=== PATIENT | male | born 1955 | race Caucasian/White ===

== ENCOUNTER 2020-01-10 14:19 | Outpatient (CLI) | payer MEDICARE, SELFPAY ==
--- NOTE | ~2020-01-10 | XR_ITS ---
EXAMINATION: XR abdomen/kub 1V EXAM DATE: 01/10/2020 14:54 INDICATION: Acute left flank pain. TECHNIQUE: Frontal projection(s) of the abdomen for interpretation. Comparison is made to prior exami nation from 07/08/2013. FINDINGS: There is a 6 mm calcification projecting over the lower pole of the right kidney, probably nephrolithiasis. There is expected amount of colonic stool and gas. No small bowel dilation, nonob structive bowel gas pattern. There is no organomegaly suspected. There are bony degenerative altman es. There is no free intraperitoneal air. The lung bases are clear. IMPRESSION: Probable right nephrolithiasis. Reviewed, dictated and finalized at location A.
== END 2020-01-10 14:20 | disposition home or self-care (01) ==
PROVIDERS: PCP Family Medicine Adolescent Medicine; Visit Provider Nurse Practitioner Adult Health
DX: R10.9 Unspecified abdominal pain (principal)
CPT/HCPCS: 74018; 87077; 87086; 87088; 87186

== ENCOUNTER 2020-01-18 10:26 | Outpatient (CLI) | payer MEDICARE, SELFPAY ==
--- NOTE | ~2020-01-18 | CT_ITS ---
EXAMINATION: CT abdomen pelvis wo con DATE: 01/18/2020 11:01 INDICATION: Acute left flank pain. TECHNIQUE: Computed tomography (CT) of the abdomen and pelvis was performed without intravenous contr ast. Automated exposure control and iterative reconstruction technique were employed. The dose-length product was 538.14 mGy-cm. COMPARISON: CT abdomen and pelvis 11/18/2013 FINDINGS: The lungs demonstrate minimal atelectasis. No pleural effusion. The heart size is normal. T here are coronary artery calcifications. No pericardial effusion. There is diffuse hepatic steatosis. The gallbladder, spleen, pancreas, and adrenal glands are normal. There are 4 stones in right kidney measuring up to 10 mm. There are two 1 mm stones in left kidney. There are cysts in left kidney chauncey uring up to 4.0 cm. No hydronephrosis. There is diverticulosis of the colon without evidence of diver ticulitis. There are mildly dilated loops of small bowel in left abdomen without focal transition poi nt. The appendix is normal. There are no pathologically enlarged lymph nodes. There is no free intrap eritoneal fluid. There is severe lumbar spondylosis and moderate thoracic spondylosis. IMPRESSION: 1. Bilateral nonobstructing kidney stones. 2. Mildly dilated small bowel in left abdomen without focal transition point, likely adynamic ileus. Reviewed, dictated and finalized at location E. IMPRESSION: 1. Bilateral nonobstructing kidney stones. 2. Mildly dilated small bowel in left abdomen without focal transition point, l ikely adynamic ileus.
== END 2020-01-18 10:27 | disposition home or self-care (01) ==
PROVIDERS: PCP Family Medicine Adolescent Medicine; Visit Provider Nurse Practitioner Adult Health
DX: R10.9 Unspecified abdominal pain (principal); N20.0 Calculus of kidney
CPT/HCPCS: 74176

== ENCOUNTER 2020-01-28 14:51 | Outpatient (CLI) | payer MEDICARE, SELFPAY ==
--- NOTE | ~2020-01-28 | XR_ITS ---
XR lumbar spine 2-3V 01/28/2020 15:27 Indication: Low back pain Procedure: 3 views lumbar spine Comparison: 05/10/2011 Findings: There is disc narrowing and endplate degenerative change at all levels. There is been progr ession of loss of disc height at all lumbar levels. There is degenerative retrolisthesis at L2-3 and L3-4. No acute fracture or traumatic malalignment. There is moderate-severe multilevel facet hypertro phy. Pedicles intact. Sacral foramen are symmetric. There is a right renal stone measuring 9 mm. Impression: 1: Progression of severe lumbar spondylosis compared with prior study. 2: Right nephrolithiasis measuring 9 mm. Reviewed, dictated and finalized at location A. Impression: 1: Progression of severe lumbar spondylosis compared with prior study. 2: Right nephrolithiasis measuring 9 mm.
== END 2020-01-28 14:52 | disposition home or self-care (01) ==
PROVIDERS: PCP Family Medicine Adolescent Medicine; Visit Provider Family Medicine Adolescent Medicine
DX: N20.0 Calculus of kidney (principal)
CPT/HCPCS: 72100

== ENCOUNTER 2020-02-03 20:28 | Outpatient (CLI) | payer MEDICARE, SELFPAY ==
--- NOTE | ~2020-02-03 | MR_ITS ---
EXAMINATION: MR lumbar spine wo con DATE: 02/03/2020 21:05 INDICATION: Left-sided low back pain. Left-sided sciatica. TECHNIQUE: Magnetic resonance imaging (MRI) of the lumbar spine was performed without intravenous con trast. Sequences included sagittal T2-weighted FSE, sagittal T2-weighted FS FSE, sagittal T1-weighted FSE, and axial T2-weighted FSE. COMPARISON: Lumbar spine MRI 05/21/2011 FINDINGS: There is 4 degrees dextrocurvature of lumbar spine. There is 5 mm retrolisthesis of L2 on L 3 and 3 mm retrolisthesis of L3 on L4. There is mild chronic anterior wedging of L1 and L2 vertebral bodies. There is moderately decreased disc height at L1-L2 and severely decreased disc height from L2 -L3 through L5-S1. The distal spinal cord signal intensity is normal. The conus medullaris is at L1-L 2. There is a 4.6 cm cyst in left kidney. The following disc levels are specifically discussed: L1-L2: The disc is bulging with superimposed left central extrusion. There is mild right facet joint osteoarthritis. There is mild bilateral neural foraminal stenosis. There is mild central canal stenos is. L2-L3: The disc is bulging and has an annular fissure. There is mild bilateral facet joint osteoarthr itis. There is moderate bilateral neural foraminal stenosis. There is mild central canal stenosis. L3-L4: The disc is bulging and has an annular fissure. There is moderate right and mild left facet mg int osteoarthritis. There is moderate bilateral neural foraminal stenosis. There is mild central taoc l stenosis. L4-L5: The disc is bulging with superimposed extrusion and left subarticular zone with mass effect on left L5 nerve root in left lateral recess. There is severe bilateral facet joint osteoarthritis. The re is severe right and moderate left neural foraminal stenosis. There is mild central canal stenosis. L5-S1: The disc is bulging as an annular fissure. There is moderate bilateral facet joint osteoarthri tis. There is severe bilateral neural foraminal stenosis. There is mild central canal stenosis. IMPRESSION: 1. Severe lumbar spondylosis, worsened from 05/21/2011. Of note, an extrusion at L4-L5 exerts mass eff ect on left L5 nerve root. Reviewed, dictated and finalized at location A. IMPRESSION: 1. Severe lumbar spondylosis, worsened from 05/21/2011. Of note, an extrusion at L4-L5 exerts mass effect on left L5 nerve root.
== END 2020-02-03 20:29 | disposition home or self-care (01) ==
PROVIDERS: PCP Family Medicine Adolescent Medicine; Visit Provider Family Medicine Adolescent Medicine
DX: M54.32 Sciatica, left side (principal); M47.816 Spondylosis without myelopathy or radiculopathy, lumbar region
CPT/HCPCS: 72148

== ENCOUNTER 2020-02-14 14:13 | Outpatient (CLI) | payer MEDICARE, SELFPAY ==
[2020-02-14 14:49] LABS: Blood Urea Nitrogen 14 mg/dL (9-20); Calcium 9.3 mg/dL (8.4-10.2); Carbon Dioxide 30 mmol/L (22-30); Chloride 100 mmol/L (98-107); Estimated Glomerular Filt Rate > 60; Glucose 295 mg/dL (75-110); INR 0.9; Sodium 136 mmol/L (137-145)
[2020-02-14 14:50] LABS: Partial Thromboplastin Time 27.6 SECONDS (22.3-36.8)
== END 2020-02-14 14:14 | disposition home or self-care (01) ==
LOC: ANHSURGERY 14:15
PROVIDERS: Anesthesiology; PCP Family Medicine Adolescent Medicine; Visit Provider Urology
DX: N20.0 Calculus of kidney (principal); E11.9 Type 2 diabetes mellitus without complications
CPT/HCPCS: 36415; 80048; 85610; 85730; 87077; 87086; 87088; 87186

== ENCOUNTER 2020-02-16 01:00 | Outpatient (CLI) | payer MEDICARE, SELFPAY ==
[2020-02-16 18:10] LABS: SARS-CoV-2 RNA PCR Negative
== END 2020-02-16 01:01 | disposition home or self-care (01) ==
LOC: ANHCOVIDDT 01:00
PROVIDERS: PCP Family Medicine Adolescent Medicine; Visit Provider Urology
DX: Z20.828 Contact with and (suspected) exposure to other viral communicable diseases (principal); Z01.812 Encounter for preprocedural laboratory examination
CPT/HCPCS: 87635; C9803; U0003

== ENCOUNTER 2020-02-18 03:10 | Day surgery (SDC) | payer MEDICARE, SELFPAY ==
[2020-02-10 14:30] VITALS: BMI 39.1
--- NOTE | 2020-02-15 16:58 | P.HP_ITS ---
History of Present Illness History of Present Illness Consent: Risks, benefits, and alternatives have been discussed and questions answered. Patient agrees to proceed with procedure. Chief complaint: Right Renal Stone Narrative: Anibal Granda is a 64 year old male who has been seen in our office for several years. He recently underwent evaluation for a PSA elevation and was found to have a negative biopsy. Around the same time he also complained of left flank pain. A CT scan of the abdomen and pelvis revealed small stones in his left kidney but for stones in his right kidney up to 10 mm. He now presents for right ESWL. He is aware of the risk of this procedure including, but not limited to, adverse cardiopulmonary events failure to effectively treat his kidney stones, bleeding from his kidney. Review of Systems Cardiovascular: Cardiovascular: Denies chest pain, Denies lightheadedness, Denies palpitations and Denies dyspnea Respiratory: Respiratory: Denies dyspnea Gastrointestinal: Gastrointestinal: Denies diarrhea, Denies nausea and Denies vomiting Genitourinary: Genitourinary: Denies hematuria and Denies dysuria Endocrine: Endocrine: Denies palpitations PMFSH Social History Social History Gender identity (if verbalized by the patient): Male Meds Home Medications and Allergies Home Medications Medication Instructions Recorded Confirmed Type aspirin 325 mg PO DAILY 02/11/20 02/11/20 History atenolol 25 mg PO BID 02/11/20 02/11/20 History atorvastatin 80 mg PO DAILY 02/11/20 02/11/20 History calcium polycarbophil [Fiber-Tabs] 1,250 mg PO DAILY 02/11/20 02/11/20 History dapagliflozin [Farxiga] 5 mg PO DAILY 02/11/20 02/11/20 History glimepiride 4 mg PO DAILY 02/11/20 02/11/20 History hydrocodone-acetaminophen 1 tablet PO Q6H PRN 02/11/20 02/11/20 History losartan 100 mg PO DAILY 02/11/20 02/11/20 History metformin 1,000 mg PO BID 02/11/20 02/11/20 History raiyxbilylrk-wjwt-ytllc acid 1 tablet PO DAILY 02/11/20 02/11/20 History [Centrum] omega 2-ufn-vdl-fish oil [Fish Oil] 1 cap PO DAILY 02/11/20 02/11/20 History omeprazole magnesium [Prilosec OTC] 40 mg PO DAILY 02/11/20 02/11/20 History Allergies Allergy/AdvReac Type Severity Reaction Status Date / Time meperidine Allergy Severe RASH, HIVES Verified 02/10/20 14:24 Sulfa (Sulfonamide Allergy Severe ???REACTION Verified 02/10/20 14:24 Antibiotics) Exam Const: General: no acute distress Resp: Effort & Inspection: normal respiratory effort GI: Inspection: non-distended GI Palp: No abdominal tenderness and No Guarding due to palpation present (GI) Auscultation: normal bowel sounds Assessment and Plan Assessment and plan (1) Bilateral kidney stones: Code(s): N20.0 - Calculus of kidney Status: Acute Assessment and Plan: * Right ESWL
[2020-02-18] VITALS (8 sets, daily range): BP systolic 139–146; BP diastolic 68–92; PULSE 62–69; RESP 10–20; TEMP 36–36.4; O2SAT 94–99
--- NOTE | ~2020-02-18 | XR_ITS ---
EXAMINATION: XR abdomen/kub 1V DATE: 02/18/2020 10:02 INDICATION: Right kidney stone. TECHNIQUE: A supine view of the abdomen on 2 radiographs was obtained. COMPARISON: CT abdomen and pelvis 01/18/2020 FINDINGS: There are no dilated loops of bowel. There is a 9 mm stone in right kidney. IMPRESSION: 1. 9 mm right kidney stone. Reviewed, dictated and finalized at location A. IMPRESSION: 1. 9 mm right kidney stone.
--- NOTE | 2020-02-18 07:04 | WPDHPUPDATE1 ---
History and Physical Update Update Date/Time: 02/18/20 07:04 History and Physical has been reviewed, including an updated exam of the patient. There are NO changes in the patient's condition. Risks, benefits, and alternatives have been discussed and questions answered. Patient agrees to proceed with procedure.
[2020-02-18] MEDS: LACTATED RINGERS 1,000 ML 30 ML IV CONT ×2 (10:40→13:10)
[2020-02-18 10:44] LABS: Glucose Point of Care 210 (65-105)
--- NOTE | 2020-02-18 10:46 | WPDANESEPPF ---
Anes - Initial Pre Proc Eval Procedure: Operation Date: 02/18/20 11:30 Proposed Procedures p Right Renal Extracorporeal Shock Wave Lithotripsy - Lázaro Mooney MD Date/Time: 02/18/20 10:46 Surgeon: Lázaro Mooney MD Pre Op Diagnosis: Right Renal Stone Patient Data Age: 64 Gender: M Height: 5 ft 7 in Weight: 105.6 kg Allergies Allergy/AdvReac Type Severity Reaction Status Date / Time meperidine Allergy Severe RASH, HIVES Verified 02/10/20 14:24 Sulfa (Sulfonamide Allergy Severe ???REACTION Verified 02/18/20 10:23 Antibiotics) Home Medications Medication Instructions Recorded Confirmed Type aspirin 325 mg PO DAILY 02/11/20 02/11/20 History atenolol 25 mg PO BID 02/11/20 02/18/20 History atorvastatin 80 mg PO DAILY 02/11/20 02/11/20 History calcium polycarbophil [Fiber-Tabs] 1,250 mg PO DAILY 02/11/20 02/11/20 History dapagliflozin [Farxiga] 5 mg PO DAILY 02/11/20 02/11/20 History glimepiride 4 mg PO DAILY 02/11/20 02/11/20 History hydrocodone-acetaminophen 1 tablet PO Q6H PRN 02/11/20 02/11/20 History losartan 100 mg PO DAILY 02/11/20 02/11/20 History metformin 1,000 mg PO BID 02/11/20 02/11/20 History ytqvbmiwafkk-vdkg-rzdgw acid 1 tablet PO DAILY 02/11/20 02/11/20 History [Centrum] omega 5-ipd-jhx-fish oil [Fish Oil] 1 cap PO DAILY 02/11/20 02/11/20 History omeprazole magnesium [Prilosec OTC] 40 mg PO DAILY 02/11/20 02/11/20 History Laboratory Tests 02/18/20 10:42 POC Capillary Glucose 210 mg/dl H mg/dl (65-105) Patient hx anesthesia problems: none Family hx anesthesia problems: none PMFSH Past Medical History Medical History (Updated 02/18/20 @ 10:50 by Garry Stephen MD) Diabetes HTN (hypertension) Hyperlipidemia Obesity JOHN on CPAP Social History Social History (Updated 02/18/20 @ 10:50 by Garry Stephen MD) Smoking status: Former smoker Gender identity (if verbalized by the patient): Male Anes - Evyi Final PreProcedure Day of Procedure 02/18/20 10:46 Patient weight: obese Heart: regular rate and rhythm Lungs: clear to auscultation Airway: Mallampati scale class II Neurological: alert and oriented Last oral intake: >/= 8 hours ASA classification: III Emergent: no Anesthetic plan: proceed Anesthesia type and monitoring: general LMA and standard monitoring Informed Consent: The patient's anesthetic plan and its attendant risks and benefits were discussed with the patient/family/POA. Questions were solicited and answers provided to the satisfaction of the patient/family/POA.
--- NOTE | 2020-02-18 11:07 | P.OP_ITS ---
Procedure Note - Detailed Date of procedure: 02/18/20 Pre-op diagnosis: Right Renal Stone Post-op diagnosis: same Procedure performed: Right ESWL Description of procedure: Subsequent to administration of Vancomycin for low- colony count, possible UTI the patient was brought to the operative suite where he was placed in the supine position on the Dornier lithotripsy table. The focal point of the lithotripter was placed at a 10mm right renal calculus. A total of 2500 shocks were delivered at a power setting of . There appeared to be good fragmentation of the stone. The patient tolerated the procedure well and was taken to the recovery room in good condition. Anesthesia: GLMA Surgeon: Lázaro Mooney MD Drains: No Packing: No Pathology: none sent Complications: No immediate complications Condition: stable Disposition: PACU
--- NOTE | 2020-02-18 11:14 | SUR.PREOP ---
family update provided
[2020-02-18 11:51] LABS: Glucose Point of Care 247 (65-105)
--- NOTE | 2020-02-18 12:24 | SUR.PHASEI ---
NOTIFIED DR GREEN OF ACCUCHECK 247. INSTRUCTED PT TO RESUME DIABETES MEDICATION TODAY WHEN PT ARRIVES HOME. PT VERBALIZED UNDERSTANDING
== END 2020-02-18 13:22 | disposition home or self-care (01) ==
PROVIDERS: PCP Family Medicine Adolescent Medicine; Visit Provider Urology
PROC: (CPT 50590; principal; 2020-02-18 11:30)
DX: N20.0 Calculus of kidney (principal)
CPT/HCPCS: 50590; 74018; 87635; C9803; J1100; J2250; J2405; J2704; J3010; J3370; J7120; U0003

== ENCOUNTER 2020-02-22 15:48 | Outpatient (CLI) | payer MEDICARE, SELFPAY ==
--- NOTE | ~2020-02-22 | XR_ITS ---
EXAMINATION: XR lumbar spine 2-3V DATE: 02/22/2020 16:39 INDICATION: Low back pain TECHNIQUE: Anteroposterior and lateral views of the lumbar spine, and cone-down lateral view of the l umbosacral junction were obtained. COMPARISON: 01/28/2020 FINDINGS: There are 5 mm of stable retrolisthesis of L2 on L3 and 3 mm of stable retrolisthesis of L3 on L4. There is no fracture. Severe loss of intervertebral disc space height is present throughout t he lumbar spine. There is no fracture. Degenerative osteophytes project from the anterior endplates o f multiple vertebral bodies. There is severe multilevel facet osteoarthritis. IMPRESSION: 1. Severe lumbar spondylosis without acute findings or significant interval change. Reviewed, dictated and finalized at location A. IMPRESSION: 1. Severe lumbar spondylosis without acute findings or significant interval elsy ashae.
--- NOTE | ~2020-02-22 | XR_ITS ---
EXAMINATION: XR hip BI wo pelvis INDICATION: Bilateral hip pain TECHNIQUE: Two views of each hip are obtained. COMPARISON: 05/10/2011 FINDINGS: There is mild left and moderate right hip osteoarthritis. Bone alignment is normal. There i s no fracture. Osteitis pubis is noted. IMPRESSION: 1. Mild left and moderate right hip osteoarthritis without acute findings. Reviewed, dictated and finalized at location A.
== END 2020-02-22 15:49 | disposition home or self-care (01) ==
PROVIDERS: PCP Family Medicine Adolescent Medicine
DX: M25.551 Pain in right hip (principal); M25.552 Pain in left hip; M51.36 Other intervertebral disc degeneration, lumbar region; M16.11 Unilateral primary osteoarthritis, right hip; M47.816 Spondylosis without myelopathy or radiculopathy, lumbar region
CPT/HCPCS: 72100; 73521

== ENCOUNTER 2022-02-28 16:30 | Emergency (ER) | payer MEDICARE, SELFPAY ==
[2022-02-28 16:41] VITALS: BP 142/72; PULSE 82; RESP 16; TEMP 36.8; O2SAT 96
--- NOTE | 2022-02-28 16:49 | ED.SKABFB ---
HPI - Skin/Abscess/Foreign Bdy General Chief complaint: Skin/Abscess/Foreign Body Stated complaint: Wasp Sting Time Seen by Provider: 02/28/22 16:50 Source: patient Mode of arrival: ambulatory Limitations: no limitations History of Present Illness HPI narrative: 66 yo M presents with swelling, redness, warmth, itching to R forearm. Was stung by wasp yesterday. took benadryl yesterday with no relief of symptoms. Denies pain. No difficulty breathing or swallowing. All systems reviewed and negative except as noted above. Related Data Home Medications Medication Instructions Recorded Confirmed aspirin 325 mg tablet 325 mg PO DAILY 02/11/20 02/28/22 atorvastatin 80 mg tablet 80 mg PO DAILY 02/11/20 02/28/22 calcium polycarbophil 625 mg 1,250 mg PO DAILY 02/11/20 02/28/22 tablet (Fiber-Tabs) losartan 100 mg tablet 100 mg PO DAILY 02/11/20 02/28/22 multivitamin-ferrous 1 tablet PO DAILY 02/11/20 02/28/22 fumarate-folic acid 18 mg-400 mcg tablet (Centrum) omega 6-pdq-jiu-fish oil 1,000 mg 1 cap PO DAILY 02/11/20 02/28/22 (120 mg-180 mg) capsule (Fish Oil) omeprazole magnesium 20 mg 40 mg PO DAILY 02/11/20 02/28/22 tablet,delayed release (Prilosec OTC) tamsulosin 0.4 mg capsule 0.4 mg PO BID 12/31/21 02/28/22 clopidogrel 75 mg tablet 75 mg PO DAILY 02/28/22 02/28/22 dapagliflozin 10 mg tablet 10 mg PO DAILY 02/28/22 02/28/22 (Farxiga) esomeprazole magnesium 40 mg 40 mg PO DAILY 02/28/22 02/28/22 capsule,delayed release furosemide 40 mg tablet 40 mg PO DAILY 02/28/22 02/28/22 metformin 500 mg tablet 500 02/28/22 potassium chloride 10 mEq 10 meq PO DAILY 02/28/22 02/28/22 tablet,extended release Allergies Allergy/AdvReac Type Severity Reaction Status Date / Time meperidine Allergy Severe RASH, HIVES Verified 02/28/22 16:42 Sulfa (Sulfonamide Allergy Severe ???REACTION Verified 02/28/22 16:42 Antibiotics) Review of Systems Review of Systems: CONSTITUTIONAL: Denies fever, chills, or sweats. EYES: Denies visual changes, redness, or discharge. ENT: Denies rhinorrhea, congestion, sore throat, or otalgia. CARDIOVASCULAR: Denies chest pain, palpitations, or edema. RESPIRATORY: Denies cough or dyspnea. GASTROINTESTINAL: Denies abdominal pain, nausea, vomiting, or diarrhea. GENITOURINARY: Denies dysuria or hematuria. SKIN: Denies rash or itching. Reports redness, swelling, itching, warmth to anterior aspect right forearm. MUSCULOSKELETAL: Denies back pain, joint pain, or myalgia. NEUROLOGIC: Denies headache, numbness, or weakness. PSYCHIATRIC: Denies anxiety or depression. All other systems reviewed are negative, except as documented in HPI. [facility] Past Medical History Medical History Diabetes HTN (hypertension) Hyperlipidemia Obesity JOHN on CPAP Surgical History Surgical History History of coronary artery stent placement November 2020 History of shoulder surgery right rotator cuff History of surgery on right wrist tendon release History of total knee arthroplasty Family History Family History Father Heart disease Diabetes mellitus Mother Breast cancer Sibling Brain tumor Social History Social History (Updated 01/22/22 @ 09:12 by Juana Alfaro MA) Smoking status: Former smoker Second hand tobacco smoke exposure: No Alcohol intake: never Substance use: never Substance use type: does not use Gender identity (if verbalized by the patient): Male Sexual Orientation (if Verbalized by the Patient): Straight or Heterosexual Spiritual care concerns: No Agree to blood products: Yes Comments At time of signature, agree with nursing past medical, surgical, social and family history. There is no relevant family history pertinent to the presenting complaint. Exam Narrative: GENERAL: This is a well-
[2022-02-28] MEDS: predniSONE 20 MG TABLET 40 MG PO (17:01)
[2022-02-28] MEDS: diphenhydrAMINE HCl CAP 25 MG CAPSULE PO (17:01)
== END 2022-02-28 17:05 | disposition home or self-care (01) ==
PROVIDERS: Emergency Provider Nurse Practitioner Family; PCP Family Medicine Adolescent Medicine
DX: T63.461A Toxic effect of venom of wasps, accidental (unintentional), initial encounter (principal); Z87.891 Personal history of nicotine dependence; E11.9 Type 2 diabetes mellitus without complications; I10 Essential (primary) hypertension; E78.5 Hyperlipidemia, unspecified; G47.33 Obstructive sleep apnea (adult) (pediatric); E66.9 Obesity, unspecified; Z68.36 Body mass index [BMI] 36.0-36.9, adult; Z95.5 Presence of coronary angioplasty implant and graft
CPT/HCPCS: 99213; A9270; G0463; J7512

== ENCOUNTER 2022-08-20 12:14 | Outpatient (CLI) | payer MEDICARE, SELFPAY ==
--- NOTE | ~2022-08-20 | US_ITS ---
Testicular ultrasound with doppler. Indication: Left epididymitis. Technique: Real-time sonography the scrotum was performed. Color flow Doppler and Doppler spectral an alysis were performed. Findings: The testes are homogeneous in echotexture bilaterally. There is no evidence of an intrates ticular mass. The right testis measures 5.0 x 2.4 x 3.2 cm and the left 4.5 x 2.5 x 3.9 cm. There is color-flow seen to both testes. Arterial and venous spectral waveforms are seen in both testes. There is no sonographic evidence of torsion. Subcentimeter right epididymal head cyst or spermatocele note d. Small right hydrocele noted. Left epididymis appears to be within normal limits. Impression: No significant abnormality seen. Reviewed, dictated and finalized at [facility]. DRIVER Impression: No significant abnormality seen.
== END 2022-08-20 12:15 | disposition home or self-care (01) ==
PROVIDERS: PCP Family Medicine Adolescent Medicine; Visit Provider Urology
DX: N45.1 Epididymitis (principal)
CPT/HCPCS: 76870; 93976

== ENCOUNTER 2023-01-14 14:34 | Outpatient (CLI) | payer MEDICARE, SELFPAY ==
--- NOTE | ~2023-01-14 | XR_ITS ---
XR abdomen/kub 1V 01/14/2023 15:14 Indication: History of kidney stones Procedure: KUB Comparison: Comparison to multiple prior studies sequentially, with oldest reviewed study dated 04/14. Findings: Bowel gas pattern is nonobstructive. No abnormal calcifications or masses. No abnormal calc ifications to suggest renal stones. There is moderate-severe lumbar spondylosis. Impression: 1: No acute abdominal abnormality. Reviewed, dictated and finalized at location L. Impression: 1: No acute abdominal abnormality.
--- NOTE | ~2023-01-14 | CT_ITS ---
EXAMINATION: CT abdomen pelvis wo con DATE: 01/14/2023 15:20 INDICATION: Nephrolithiasis TECHNIQUE: Computed tomography (CT) of the abdomen and pelvis was performed without intravenous contr ast. Automated exposure control and iterative reconstruction technique were employed. The dose-length product was 747.29 mGy-cm. COMPARISON: 01/18/2020 FINDINGS: 4-5 mm right lower lobe nodule. Heart size normal. Atherosclerotic coronary artery calcification. No pericardial or pleural effusion. Liver, gallbladder, spleen, pancreas and bilateral adrenal glands ar e normal. Couple low-attenuation cysts at the lower pole of the left kidney the larger measuring 5.4 cm. Bilateral nonobstructing nephrolithiasis with 6 stones measuring up to 2 mm maximal diameter in t he right kidney and with 5 punctate 1 mm stones in the left kidney. No hydronephrosis or stones along the bilateral ureters. There are few diverticula along the descending and sigmoid colon without sheela cent inflammatory stranding to suggest diverticular colitis. Small bowel and appendix are normal. Nelson dder is normal. No free intraperitoneal gas or fluid. No pathologically enlarged abdominal or pelvic lymphadenopathy. Small fat-containing umbilical hernia. Severe lumbar spondylosis and mild to moderat e bilateral hip osteoarthritis. IMPRESSION: 1. Bilateral nonobstructing nephrolithiasis. 2. 4-5 mm right lower lobe nodule. If the patient is low risk for lung cancer, no follow-up is needed . If the patient is high risk (i.e., history of smoking or asbestos or significant radiation exposure ), optional follow-up chest CT could be considered at 12 months. Reviewed, dictated and finalized at location A. IMPRESSION: 1. Bilateral nonobstructing nephrolithiasis. 2. 4-5 mm right lower lobe nodule. If the patient is low risk for lung cancer, no follow-up is needed. If the patient is high risk (i.e., history of smoking o r asbestos or significant radiation exposure), optional follow-up chest CT coul d be considered at 12 months.
== END 2023-01-14 14:35 | disposition home or self-care (01) ==
PROVIDERS: PCP Family Medicine Adolescent Medicine; Visit Provider Urology
DX: N20.0 Calculus of kidney (principal); R91.1 Solitary pulmonary nodule
CPT/HCPCS: 74018; 74176

== ENCOUNTER 2023-05-05 12:04 | Emergency (ER) | payer MEDICARE, SELFPAY ==
[2023-05-05 12:24] VITALS: BP 132/74; PULSE 111; RESP 20; TEMP 37.8; O2SAT 95
--- NOTE | 2023-05-05 12:55 | ED.URI ---
HPI - URI/Sore Throat General Chief Complaint: Upper Respiratory Infection Stated Complaint: fever,body aches,chills Time Seen by Provider: 05/05/23 12:41 Source: patient and RN notes reviewed Mode of arrival: ambulatory Limitations: no limitations History of Present Illness HPI Narrative: Patient presents today with a 3 day history of subjective fever, body aches, nausea with decreased appetite, loose stool. Patient has had 2 loose stools per day without blood or mucus. He denies cough, congestion, sore throat, rhinorrhea, abdominal pain. He has been taking ibuprofen with some relief of symptoms. Denies known sick contacts. He is able to keep down fluids well and is urinating an appropriate amount. Related Data Home Medications Medication Instructions Recorded Confirmed aspirin 325 mg tablet 325 mg PO DAILY 02/11/20 02/28/22 calcium polycarbophil 625 mg 1,250 mg PO DAILY 02/11/20 02/28/22 tablet (Fiber-Tabs) losartan 100 mg tablet 100 mg PO DAILY 02/11/20 02/28/22 multivitamin-ferrous 1 tablet PO DAILY 02/11/20 02/28/22 fumarate-folic acid 18 mg-400 mcg tablet (Centrum) omeprazole magnesium 20 mg 40 mg PO DAILY 02/11/20 02/28/22 tablet,delayed release (Prilosec OTC) furosemide 40 mg tablet 40 mg PO DAILY 02/28/22 02/28/22 potassium chloride 10 mEq 10 meq PO DAILY 02/28/22 02/28/22 tablet,extended release amitriptyline 25 mg tablet mg 05/05/23 atenolol 25 mg tablet mg 05/05/23 Allergies Allergy/AdvReac Type Severity Reaction Status Date / Time meperidine Allergy Severe RASH, HIVES Verified 05/05/23 12:09 Sulfa (Sulfonamide Allergy Severe ???REACTION Verified 05/05/23 12:09 Antibiotics) Review of Systems Review of Systems: CONSTITUTIONAL: Denies chills, or sweats.+ body aches, fever EYES: Denies visual changes, redness, or discharge. ENT: Denies rhinorrhea, congestion, sore throat, or otalgia. CARDIOVASCULAR: Denies chest pain, palpitations, or edema. RESPIRATORY: Denies cough or dyspnea. GASTROINTESTINAL: Denies abdominal pain, vomiting. + nausea, diarrhea, decreased appetite GENITOURINARY: Denies dysuria or hematuria. SKIN: Denies rash, itching, or wounds. MUSCULOSKELETAL: Denies back pain, joint pain, or myalgia. NEUROLOGIC: Denies headache, numbness, tingling, or weakness. PSYCH: Denies depression or anxiety. [facility] Past Medical History Medical History Bilateral kidney stones (2019) Diabetes HTN (hypertension) Hyperlipidemia Obesity JOHN on CPAP Surgical History Surgical History History of coronary artery stent placement (11/2020) November 2020 History of shoulder surgery right rotator cuff History of surgery on right wrist tendon release History of total knee arthroplasty Family History Family History Father Heart disease Diabetes mellitus Mother Breast cancer Sibling Brain tumor Social History Social History Smoking status: Former smoker Second hand tobacco smoke exposure: No Alcohol intake: never Substance use: never Substance use type: does not use Living arrangements: with family Occupation/Education: retired Gender identity (if verbalized by the patient): Male Sexual Orientation (if Verbalized by the Patient): Straight or Heterosexual Spiritual care concerns: No Agree to blood products: Yes Comments At time of signature, I have reviewed and agree with nursing past medical, surgical, social and family history unless otherwise noted. Please see nursing chart for further information. There is no relevant family history pertinent to the presenting complaint Exam Narrative: GENERAL: Mildly ill-appearing, well-nourished, and in no acute distress. HEAD: Normocephalic, atraumatic. EYES: EO
== END 2023-05-05 13:06 | disposition home or self-care (01) ==
PROVIDERS: Emergency Provider Nurse Practitioner; PCP Family Medicine Adolescent Medicine
DX: B34.9 Viral infection, unspecified (principal); Z20.822 Contact with and (suspected) exposure to COVID-19; Z87.891 Personal history of nicotine dependence; E11.9 Type 2 diabetes mellitus without complications; I10 Essential (primary) hypertension; E78.5 Hyperlipidemia, unspecified; E66.9 Obesity, unspecified; Z68.36 Body mass index [BMI] 36.0-36.9, adult; G47.33 Obstructive sleep apnea (adult) (pediatric); Z79.82 Long term (current) use of aspirin; I25.10 Atherosclerotic heart disease of native coronary artery without angina pectoris; Z95.5 Presence of coronary angioplasty implant and graft
CPT/HCPCS: 87426; 99213; C9803; G0463

== ENCOUNTER 2023-11-10 14:39 | Outpatient (CLI) | payer MEDICARE, SELFPAY ==
--- NOTE | ~2023-11-10 | CT_ITS ---
EXAMINATION:CT diagnostic chest wo con DATE: 11/10/2023 15:01 INDICATION: Right lower lobe pulmonary nodule. TECHNIQUE: Computed tomography (CT) of the chest was performed without intravenous contrast. Automate d exposure control and iterative reconstruction technique were employed. The dose-length product (DLP ) was 286.95 mGy-cm. COMPARISON: CT abdomen and pelvis 01/14/2023 FINDINGS: There is mild emphysema. There is a 5 mm nodule in right lower lobe. There is mild atelecta sis bilaterally. There is a 3 mm nodule at left major fissure. A calcified left lung nodule is consis tent with old granulomatous disease. No pleural effusion. The heart size is normal. There are coronar y artery calcifications. No pericardial effusion. There is severe thoracic spondylosis. There is mild chronic anterior wedging of multiple vertebral bodies. IMPRESSION: 1. Stable small pulmonary nodules, likely benign. 2. Mild emphysema. Reviewed, dictated and finalized at location A.
== END 2023-11-10 14:40 | disposition home or self-care (01) ==
PROVIDERS: PCP Family Medicine Adolescent Medicine; Visit Provider Family Medicine Adolescent Medicine
DX: R91.1 Solitary pulmonary nodule (principal); J43.9 Emphysema, unspecified
CPT/HCPCS: 71250

== ENCOUNTER 2024-04-09 12:46 | Outpatient (CLI) | payer MEDICARE, SELFPAY ==
--- NOTE | ~2024-04-09 | CT_ITS ---
CT abdomen pelvis wo con Ordering provider: Carlos Ortiz MD History: 68 years Male with . Persistent pain in left flank . Comparison: January 14, 2023 Technique: CT abdomen and pelvis without IV and without oral contrast. Automated exposure control and iterative reconstruction technique were employed. The dose-length product was 1020.81 mGy-cm. Findings: VISUALIZED LOWER CHEST: Dependent atelectatic changes. Possible nodule in the right lower lobe measur ing 3 mm. UPPER ABDOMINAL ORGANS: Liver: Normal. Gallbladder: Normal. Spleen: Normal. Stomach/duodenum: Normal. Pancreas: Normal. Adrenals: Normal. Kidneys: Tiny stones in the right kidney mid and lower pole. Cyst in the left kidney lower pole measu ring 5.6 cm. Cyst in the left kidney midpole measuring 2.9 cm. PELVIC ORGANS: The bladder is normal. BOWEL AND MESENTERY: Colon: Mild sigmoid diverticulosis without diverticulitis. Normal appendix. Small Bowel: Normal. No obstruction. Peritoneum/mesentery: No free air or free fluid. No mesenteric lymphadenopathy. RETROPERITONEUM: Mild atheromatous disease of the abdominal aorta. No retroperitoneal lymphadenopat hy. MUSCULOSKELETAL: Superficial soft tissues: Small bilateral fat containing hernias. The superficial soft tissues are no rmal. Bones: Age appropriate degenerative changes of the spine. Pubic symphysitis. IMPRESSION: 1. No evidence of appendicitis, diverticulitis or intestinal obstruction. 2. Tiny stones in the right kidney upper and lower poles. 3. Left renal cysts. 4. Possible tiny lung nodule in the right lower lobe. 12 month follow-up advised. Reviewed, dictated and finalized at location A.
== END 2024-04-09 12:47 ==
LOC: MICIMG 12:47
PROVIDERS: PCP Family Medicine Adolescent Medicine; Visit Provider Family Medicine Adolescent Medicine
DX: R10.9 Unspecified abdominal pain (principal); N28.1 Cyst of kidney, acquired
CPT/HCPCS: 74176

== ENCOUNTER 2024-09-20 10:07 | Outpatient (CLI) | payer MEDICARE, SELFPAY ==
--- NOTE | ~2024-09-20 | US_ITS ---
EXAMINATION: US arterial ankle brachial ind DATE: 09/20/2024 10:50 INDICATION: Peripheral vascular disease TECHNIQUE: Segmental pressures and plethysmographic and Doppler waveforms of the brachial and lower e xtremity arteries were obtained. COMPARISON: None. FINDINGS: Right and left brachial artery pressures of 119 mm Hg and 124 mm Hg, respectively, are concordant (no rmal difference <= 30 mmHg). The right ankle-brachial index (HILDA) is 1.27 (normal >= 0.9-1.0). The right great toe-brachial index (TBI) is 0.67 (normal >= 0.65). Arterial Doppler waveforms demonstrate brisk systolic upstrokes at kaleb th right posterior tibial and dorsalis pedis arteries. The left HILDA is 1.31. The left TBI is 0.66. Arterial Doppler waveforms demonstrate brisk systolic ups trokes at both left posterior tibial and dorsalis pedis arteries. IMPRESSION: 1. No significant arterial occlusive disease to either lower limb with normal bilateral ABIs and TBIs . Reviewed, dictated and finalized at location A. THESIOLOGY PHYSICIAN ASSISTANT IMPRESSION: 1. No significant arterial occlusive disease to either lower limb with normal b ilateral ABIs and TBIs.
== END 2024-09-20 10:08 | disposition home or self-care (01) ==
PROVIDERS: PCP Family Medicine Adolescent Medicine; Visit Provider Family Medicine
DX: I73.9 Peripheral vascular disease, unspecified (principal)
CPT/HCPCS: 93922

== ENCOUNTER 2024-12-15 10:33 | Emergency (ER) | payer MEDICARE, SELFPAY ==
--- NOTE | ~2024-12-15 | CT_ITS ---
CLINICAL INDICATION: Lower back pain and flank pain COMPARISON: 04/09/2024. TECHNIQUE: Multiple contiguous axial images of the abdomen and pelvis were performed without the admi nistration of intravenous contrast The dose-length product (DLP) was 1163.53 mGy-cm. Automated exposure control and iterative reconstruction technique were employed. FINDINGS/OBSERVATIONS: Visualized lower thorax: The bilateral lung bases are clear. The heart is of normal size, without pericardial effusion. Small hiatal hernia is present. Liver: The liver demonstrates homogeneous attenuation and is enlarged measuring 20 cm in longitudinal dimens ion. Gallbladder and biliary system: The gallbladder is only minimally distended, and otherwise unremarkable. Pancreas: Limited evaluation of the pancreas secondary to the lack of intravenous contrast. Spleen: The spleen demonstrates homogeneous attenuation and is not enlarged. Kidneys: Scattered 1 and 2 mm nonobstructing calculi within the right kidney, unchanged from 04/09/2024 . Redemonstration of multiple well-circumscribed foci of decreased attenuation within the left kidney, unchanged from prior, consistent with simple cysts. The remainder of the bilateral kidneys are otherwise unremarkable, without hydronephrosis or addition al renal calculi. Adrenal glands: Unremarkable. Gastrointestinal tract: Colonic diverticulosis without surrounding inflammatory change. Fecal stasis within the colon. Appendix: The air-filled appendix is of normal caliber (axial series, images 95 through 116) Vasculature: Calcified atherosclerotic disease. Lymph nodes: Limited evaluation without intravenous contrast. Pelvic structures: The bladder is only minimally distended, and otherwise unremarkable. The prostate gland is not enlarged. Body wall and musculoskeletal: Small fat-containing umbilical hernia. Severe degenerative disease within the lumbosacral spine with osteophyte formation, disc space narrow ing, endplate changes and vacuum phenomena. No acute compression fractures are present. This finding is also unchanged from April 2024 IMPRESSION: Stable CT examination of the abdomen and pelvis, as detailed above. 1 and 2 mm nonobstructing right-sided renal calculi. Severe degenerative disease within the lumbosacral spine, likely the source of patient's discomfort. Reviewed, dictated and finalized at location A.
[2024-12-15 10:36] VITALS: BP 132/96; PULSE 95; RESP 20; TEMP 36.6; O2SAT 96
[2024-12-15 11:21] VITALS: BP 140/77; PULSE 92; RESP 18; O2SAT 96
--- OUTSIDE RECORDS SUMMARY | 2024-12-15 11:47 | XMS_ITS | Clinical Summary ---
Author Organization [employer] [id number] [facility] Address [address] [place] [address] Care Team Providers Care Transfer And Pumphouse Operator Name Role Phone Carlos Ortiz MD Primary Care Provider [phone] Allergies No known active allergies Medications atenoloL (TENORMIN) 25 mg tablet atenolol 25 mg tablet Active atorvastatin (LIPITOR) 80 mg tablet atorvastatin 80 mg tablet Active ciprofloxacin HCl (CIPRO) 500 mg tablet ciprofloxacin 500 mg tablet Active dapagliflozin (Farxiga) 5 mg Tablet Farxiga 5 mg tablet Active esomeprazole (NexIUM) 40 mg Capsule, Delayed Release(E.C.) esomeprazole magnesium 40 mg capsule,delayed release Active glimepiride (AMARYL) 4 mg tablet glimepiride 4 mg tablet Active HYDROcodone-ac etaminophen (NORCO) 5-325 mg tablet TAKE 1 TO 1 1/2 TABLETS BY MOUTH 4 TIMES DAILY IF NEEDED FOR PAIN 0 Active losartan (COZAAR) 100 mg tablet losartan 100 mg tablet Active metFORMIN (GLUCOPHAGE) 500 mg tablet 2 times daily. A ctive tamsulosin (FLOMAX) 0.4 mg capsule tamsulosin 0.4 mg capsule Active docosahexaenoi c acid/epa (FISH OIL ORAL) Fish Oil 1200 mg 2 tabs qd Active aspirin (GABRIELA) 325 mg tablet every 24 hours. Acti ve multivitamin with minerals-lycop jesse-lutein (Centrum Silver) 0.4-300-250 mg-mcg-mcg Tablet per tablet Centrum Silver Qd Active Active Problems No known active problems Family History Medical History Relation Name Comments Diabetes Father Alzheimer's Disease Mother Relation Name Status Comments Father Alive Mother Social History Tobacco Use Types Packs/Day Years Used Date Smoking Tobacco: Former Cigarettes Q uit: 2007 Alcohol Use Standard Drinks/Week Comments Not Currently 0 (1 standard drink = 0.6 oz pur e alcohol) Sex and Gender Information Value Date Recorded Sex Assigned at Not on file Legal Sex Male 11:48 PM CDT Gender Identity Not on file Sexual Orientation Not on file Plan of Treatment Health Maintenance Due Date Last Done Comments DIABETES ANNUAL FOOT EXAM 1971 DIABETES ANNUAL RETINAL EXAM 1971 DIABETES HBA1C Q 6 MONTHS 1971 DIABETES MICROALBUMIN ANNUAL SCREEN 1971 LDL CHOLESTEROL ANNUAL 1971 DTAP/TDAP/TD VACCINES (1 - Tdap) 1972 PNEUMOCOCCAL VACCINE 50+ YEARS (1 of 2 - PCV) 06/03/19 72 COLORECTAL SCREENING 1998 Colorectal Cancer Screening 1998 FIT-DNA Q 3 years 1998 FIT/FOBT Q 1 year 1998 Flex Sig/CT Colonography Q 5 years 1998 ZOSTER VACCINE (1 of 2) 2003 RSV VACCINE (60+ or ) (1 - Risk 60-74 years 1-dose series) 2013 INFLUENZA VACCINE (#1) 2024 Insurance [employer] PPO MCR Care Teams Transfer And Pumphouse Operator Relationship Specialty Start Date End Date Carlos Ortiz MD PCP - General Family Practice 02/16/20
--- OUTSIDE RECORDS SUMMARY | 2024-12-15 11:47 | XMS_ITS | Continuity of Care Document ---
[facility] Organization [facility] Address [address] [place] [address] Phone Care Team Providers Care Peoplesoft Developer Name Role Phone Calvin Lora MD Unavailable Unavailable Advance Directives Directive Yes / No Effective Date File Name No Information Encounters Encounter Description Practice Location Reason(s) For Visit Diagnoses Date Provider Providers Copied on Encounter [facility], [address], [place], [place], [id number], tel:[phone] [facility] No Information Geno Simpson. [address] , [place], [place], [id number]. tel:[phone] Referring Provider: [address], [place], [address]. tel:[phone] Family History Family Member Type Diagnosis Age At Onset No Information Payers Payer name Insurance type Covered republican ID Authoriza tion(s) [employer] INACTIVE OUT OF STATE [id number] 1 Social History Type Description Quantity Date Captured Comments Sex Male Smoking Status No Information Chief Complaint And Reason For Visit No Information Reason For Referral Reason For Referral No Information History Of Present Illness Encounter Date Complaint History Of Prese nt Illness No Information Functional Status Date Functional Assessmen t No Information Instructions Date Instruction Additional Infor mation No Information Assessments Type Assessment Date No Information Patient Care Teams Name Effective Dates (start - stop) Status Members No Information
--- OUTSIDE RECORDS SUMMARY | 2024-12-15 11:47 | XMS_ITS | CONTINUITY OF CARE DOCUMENT ---
Author Name jorge patel Address Unknown Organization [facility] Address [id number] [place] [address] [address] [place] [address] Phone [phone] Care Team Providers Care Low Voltage Technician Name Role Phone REESE SAHU MD Unavailable [phone] INSURANCE PROVIDERS Payer name Policy type / Coverage type Lauri red constitution party ID [facility] [id number] 1
--- OUTSIDE RECORDS SUMMARY | 2024-12-15 11:47 | XMS_ITS | Data Portability ---
Author Organization [place] - [facility] OFFICE Address [address] [place] [address] Care Team Providers Care Maintenance Planning Clerk Name Role Phone REESE SAHU Primary Care Provider Assessment No assessment recorded. Plan of Treatment Reminders Order Date Submit Date Provider Last Modified By Organization Details Last Modified Time Details Appointments None recorded. Lab None recorded. Referral None recorded. Procedures None recorded. Surgeries None recorded. Imaging None recorded. Medication Orders rosuvastati n 20 mg tablet 2023 [id number], [address] [place], [address], 11:09:01 furosemide 40 mg tablet 2023 024 [facility][id number], [address] [place], [address], 11:58:34 Patient TargetsNo targets recorded. Patient Instructions Encounter Date Encounter Id Patient Instructions Last Modified By Organization Details Last Modified Time 06/17/2023 [id number] Weight loss 20 pounds Exercise advised Low cholesterol diet advised Low sodium diet advised. [email or web address] Not available 06/17/2023 14:32:53 12/14/2024 [id number] Weight loss 20 pounds Exercise advised Low cholesterol diet advised Low sodium diet advised. [email or web address] Not available 12/14/2024 13:15:47 Reason for Referral None Reported. Results Created Date Observation Date Name Description Value Unit Range Abnormal Flag Note LastModifiedBy Organization Detail LastModifiedTime 06/28/2006/27/2023 US, echoc ardio gram No observ ation record ed. [email or web address] Not Available 2022 12:36:49 06/09/2006/08/2024 steven coleman am No observ ation record ed. [email or web address] Not Available 2023 09:21:09 06/30/2006/19/2024 liz can cardi olite stres s test (PROC ) No observ ation record ed. [email or web address] Not Available 2023 14:21:42 Result Notes None recorded. Problems Name Problem SNOMED Code Status Onset Date Resolution Date Notes Provider Name and Address Organization Details Recorded Time Coronary atheroscler osis 053936620 Active 2022 Elizabeth [place], [place] - [facility] 3 20:14:37 Hyperlipide bob 84493517 Active 2015: LDL 69 Elizabeth [place], [place] - [facility] 3 20:14:16 History of hypertensio n 716110686 Completed 201512/13/2015 Michelle [place], [place] - [facility] 6 01:24:10 Diabetes mellitus 76414372 Active 2015 Type 2 Elizabeth mu[place], [place] - [facility] 3 20:14:11 Obstructive sleep apnea syndrome 52945457 Active 2015 [place], [place] - [facility] 3 20:14:21 Gastroesoph ageal reflux disease 734941821 Active 2015 [place] - [facility] 6 09:03:31 Obesity 223452458 Active 2015 [place] [facility] 6 09:03:49 Multi vessel coronary artery disease 119146432 Completed 201601/06/2019 s/p CABG Tricia [place], [place] - [facility] 9 16:38:56 Benign hypertensio n 77514363 Active 2015 Elizabeth mu[place], [place] - [facility] 3 20:14:05 Peripheral arterial occlusive disease 744189911 Active 2017 Johnsonhomer Tena [facility] [place] 8 12:12:06 Coronary arterioscle danyelis 15900579 Active 2018 Johnsonhomer Tena [facility] [place] 3 20:14:08 Edema of lower extremity 819019148 Active 2018 Tricia Ho [facility] 9 16:40:52 Dyspnea on exertion 98656048 Active 2018 Tricia Ho [facility] 9 16:42:33 Problem Notes None recorded. Procedures Surgical History Date Name Laterality Status Provider Name and Address Organization Details Recorded Time Back Surgery completed [facility] 12/13/2015 11:44:17 Anesth surgery of shoulder completed [facility] 12/13/2015 11:44:40 Carpal tunnel surgery completed [facility] 12/13/2015 11:44:53 Anesth kidney stone destruct completed [facility] 12/13/2015 11:45:12 Anesth knee area surgery completed [facility] [place] 12/13/2015 11:45:27 Imaging Results Imaging Date Name Status LastModified by Organization Details LastModified Time 06/27/2023 US, echocardiogram completed Inform ation not available 06/29/2023 12:36:49 06/08/2024 electrocardiogram completed Informa tion not available 06/09/2024 09:21:09 06/19/2024 lexiscan cardiolite stress test (PROC) completed Information not available 06/30/2024 14:21:42 Procedure Notes None recorded. Medical Equipment None Reported. Allergies Allergen ID Allergen Name Allergen Category Reaction Reaction Severity Criticality Documentation Date Start Date Code Code System Note Provider Name and Address Organization Details Recorded Time 444 Demerol medicatio n Not available Not available Not available 12/08/2015 91073 1 RxNorm HCL Hala Eugene [facility] 6 08:58:19 Medications Name Sig Start Date Stop Date Status Note LastModified by Organization Details LastModified Time losartan 50 mg tablet TAKE 1 TABLET BY MOUTH DAILY 11/13 completed Not Available Not Available Not Available amoxicilli n 500 mg capsule 12/13 completed Not Available Not Available Not Available furosemide 40 mg tablet TAKE 1 TABLET BY MOUTH EVERY DAY active Not Available Not Available No t Available fluconazol e 100 mg tablet TAKE 1 TABLET BY MOUTH EVERY DAY FOR 10 DAYS 11/13 completed Not Available Not Available Not Available atorvastat in 40 mg tablet 2 tab qd 01/06 completed Not Available Not Available Not Available metformin 500 mg tablet TAKE 2 TABLETS TWICE A DAY active Not Available Not Available No t Available atorvastat in 80 mg tablet 1qd active Not Available Not Available Not Available prednisone 10 mg tablet TAKE 6 TABS DAILY X3 DAYS, 4 DAILY X3 DAYS, 2 DAILY X3 DAYS, THEN 1 DAILY X4 DAYS 12/04 completed Not Available Not Available Not Available oxybutynin chloride ER 10 mg tablet,ext ended release 24 hr TAKE 1 TABLET BY MOUTH EVERY DAY active Not Available Not Available No t Available aspirin 325 mg tablet Take 1 tablet every day by oral route. active Not Available Not Available No t Available hydrocodon e 5 mg-acetami nophen 325 mg tablet TAKE 1 TO 2 TABLETS BY MOUTH EVERY 6 HOURS NEEDED 03/12 completed pt no longer takes 021 nj Not Available Not Available Not Available atenolol 25 mg tablet TAKE 1 TABLET BY MOUTH TWICE A DAY 03/18 completed Not Available Not Available Not Available potassium chloride ER 10 mEq tablet,ext ended release TAKE 1 TABLET BY MOUTH EVERY DAY active Not Available Not Available No t Available metronidaz ole 500 mg tablet TAKE 1 TABLET BY MOUTH THREE TIMES A DAY 06/08 completed Not Available Not Available Not Available Coated Aspirin 325 mg tablet Qd 06/24 completed Not Available Not Available Not Available clopidogre l 75 mg tablet TAKE 1 TABLET BY MOUTH DAILY active Not Available Not Available No t Available ciprofloxa jodie 500 mg tablet TAKE 1 TABLET BY MOUTH EVERY 12 HOURS active Not Available Not Available No t Available sildenafil 100 mg tablet TAKE ONE TABLET BY MOUTH APPROXIM ATELY 30 MINUTES TO FOUR HOURS BEFORE SEXUAL ACTIVITY . DO NOT USE MORE THAN ONE DOSE DAILY active Not Available Not Available No t Available triamcinol one acetonide 0.1 % topical cream APPLY TOPICALL Y TWICE A DAY TO HANDS FOR 2 WEEKS active Not Available Not Available No t Available glimepirid e 2 mg tablet Take 0.5 tablets every day by oral route. 06/24 completed Bid Not Available Not Available Not Available propranolo l 40 mg tablet Take 1 tablet twice a day by oral route. active Not Available Not Available No t Available amitriptyl ine 25 mg tablet TAKE 1 TABLET BY MOUTH EVERYDAY AT BEDTIME active Not Available Not Available No t Available tamsulosin 0.4 mg capsule TAKE 1 CAPSULE BY MOUTH TWICE A DAY active Not Available Not Available No t Available ciprofloxa jodie 0.3 % eye drops PLEASE SEE ATTACHED FOR DETAILED DIRECTIO NS active Not Available Not Available No t Available phenazopyr idine 100 mg tablet TAKE 1 TABLET (100 MG TOTAL) BY MOUTH 3 TIMES A DAY NEEDED FOR URINARY PAIN active Not Available Not Available No t Available baclofen 10 mg tablet TAKE 1 TABLET BY MOUTH THREE TIMES A DAY active Not Available Not Available No t Available hydrocodon e 7.5 mg-acetami nophen 325 mg tablet 06/23 completed Not Available Not Available Not Available esomeprazo le magnesium 40 mg capsule,de layed release TAKE 1 CAPSULE DAILY active Not Available Not Available No t Available glimepirid e 4 mg tablet TAKE 1 TABLET DAILY active Not Available Not Available No t Available propranolo l ER 80 mg capsule,24 hr,extende d release TAKE 1 CAPSULE DAILY active Not Available Not Available No t Available nitroglyce rin 0.[address] 1 tablet 3 times a day by sublingu al route as needed. active Not Available Not Available No t Available gabapentin 300 mg capsule TAKE 1 CAPSULE BY MOUTH THREE TIMES A DAY 06/08 completed Not Available Not Available Not Available mupirocin 2 % topical ointment APPLY IN RIGHT NOSTRIL TWICE A DAY FOR 2 WEEKS active Not Available Not Available No t Available furosemide 20 mg tablet TAKE 1 TABLET DAILY 03/12 completed Not Available Not Available Not Available lorazepam 1 mg tablet TAKE 2 TABLETS BY MOUTH 1 HOUR PRIOR TO PROCEDUR E 03/12 completed pt no longer takes 021 nj Not Available Not Available Not Available levofloxac in 500 mg tablet TAKE 1 TABLET BY MOUTH EVERY DAY 06/17 completed Not Available Not Available Not Available methylpred nisolone 4 mg tablets in a dose pack TAKE 6 TABLETS ON DAY 1 DIRECTED ON PACKAGE AND DECREASE BY 1 TAB EACH DAY FOR A TOTAL OF 6 DAYS 06/17 completed Not Available Not Available Not Available pioglitazo ne 30 mg tablet TAKE 1 TABLET DAILY active Not Available Not Available No t Available ketoconazo le 2 % topical cream 11/13 completed Not Available Not Available Not Available oxybutynin chloride 5 mg tablet TAKE 1 TABLET BY MOUTH TWICE A DAY active Not Available Not Available No t Available ondansetro n 4 mg disintegra ting tablet TAKE 1 TABLET BY MOUTH THREE TIMES A DAY NEEDED FOR NAUSEA AND VOMITING active Not Available Not Available No t Available losartan 100 mg tablet TAKE 1/2 TABLET DAILY DIRECTED active Not Available Not Available No t Available etodolac 500 mg tablet TAKE 1 TABLET BY MOUTH TWICE DAILY active Not Available Not Available No t Available metformin ER 500 mg tablet,ext ended release 24 hr 12/04 completed Not Available Not Available Not Available doxycyclin e hyclate 100 mg tablet TAKE 1 TABLET BY MOUTH TWICE A DAY 06/08 completed Not Available Not Available Not Available finasterid e 5 mg tablet TAKE 1 TABLET (5 MG TOTAL) BY MOUTH DAILY. active Not Available Not Available No t Available rosuvastat in 20 mg tablet TAKE 1 TABLET BY MOUTH EVERY DAY active Not Available Not Available No t Available nitrofuran toin monohydrat e/macrocry stals 100 mg capsule TAKE 1 CAPSULE BY MOUTH TWICE A DAY 12/04 completed Not Available Not Available Not Available Vytorin 10 mg-80 mg tablet 06/23 completed Not Available Not Available Not Available chlorhexid ine gluconate 0.12 % mouthwash 06/23 completed Not Available Not Available Not Available Fish Oil 1200 mg 2 tabs qd 03/12 completed pt no longer takes 021 nj Not Available Not Available Not Available Centrum Silver Qd 07/31 completed Not Available Not Available Not Available Metamucil 06/23 completed Not Available Not Available Not Available Vytorin 10-80 Qd 06/05 completed Not Available Not Available Not Available Brilinta 90 mg tablet Take 1 tablet twice a day by oral route. 03/13 completed Not Available Not Available Not Available Farxiga 10 mg tablet TAKE 1 TABLET DAILY active Not Available Not Available No t Available Farxiga 5 mg tablet Take 1 tablet twice a day by oral route for 90 days. 06/17 completed Not Available Not Available Not Available Paxlovid 300 mg (150 mg x 2)-100 mg tablets in a dose pack TAKE (ORAL) TAKE DIRECTED PER PACKAGE DIRECTIO NS active Not Available Not Available No t Available Ozempic 0.25 mg or 0.5 mg (2 mg/3 mL) subcutaneo us pen injector 0.5 MG (0.736 ML) SUBCUTAN EOUSLY WEEKLY FOR 4 WEEKS active Not Available Not Available No t Available Vitals Date Recorded Body height Body mass index (BMI) Body weight Heart rate Respiratory rate Oxygen saturation Oxygen saturation in Arterial blood by Pulse oximetry Systolic blood pressure Diastolic blood pressure Provider Name and Address Organization Details Last Updated DateTime 3 175.26 cm 34.9 kg/m2 461785. 8 g 72 /min 16 /min 96 % 96 % 142 mm[Hg] 72 mm[Hg] Nathaniel Johnson [facility] 3 14:07:26 Date Recorded Body height Body mass index (BMI) Body weight Heart rate Oxygen saturation Oxygen saturation in Arterial blood by Pulse oximetry Systolic blood pressure Diastolic blood pressure Provider Name and Address Organization Details Last Updated DateTime 4 175.26 cm 36.4 kg/m2 024151. 8 g 79 /min 95 % 95 % 141 mm[Hg] 84 mm[Hg] Rolanda Coronado [facility] 4 11:48:40 Date Recorded Body height Body mass index (BMI) Body weight Heart rate Oxygen saturation Oxygen saturation in Arterial blood by Pulse oximetry Systolic blood pressure Diastolic blood pressure Provider Name and Address Organization Details Last Updated DateTime 4 175.26 cm 37.7 kg/m2 572625. 05 g 81 /min 92 % 92 % 108 mm[Hg] 71 mm[Hg] Rolanda Coronado [facility] 4 11:38:25 Date Recorded Body height Body mass index (BMI) Body weight Heart rate Respiratory rate Oxygen saturation Oxygen saturation in Arterial blood by Pulse oximetry Systolic blood pressure Diastolic blood pressure Provider Name and Address Organization Details Last Updated DateTime 4 175.26 cm 37.2 kg/m2 893769. 28 g 115 /min 20 /min 92 % 92 % 132 mm[Hg] 82 mm[Hg] Nathaniel Johnson [facility] [place] 4 10:45:21 Date Recorded Body height Body mass index (BMI) Body weight Heart rate Respiratory rate Oxygen saturation Oxygen saturation in Arterial blood by Pulse oximetry Systolic blood pressure Diastolic blood pressure Provider Name and Address Organization Details Last Updated DateTime 5 175.26 cm 36 kg/m2 023475. 54 g 100 /min 16 /min 93 % 93 % 134 mm[Hg] 86 mm[Hg] Rolanda Cliff [facility] 5 13:03:29 Social History Question Answer Notes LastModified by Organizat ion Details LastModified Time Tobacco Smoking Status Former Smoker Quit 09/02/06 Elizabeth mueller [facility] 12/13/2015 11:49:20 What Is Your Level Of Alcohol Consumption? Occasional Information not available 12/13/2015 Do You Or Have You Ever Used E-cigarettes Or Vape? Never Used Electronic Cigarettes Information not available 12/01/2020 Live Alone Or With Others? With Others [email or web address] Information not available 12/14/2015 What Was The Date Of Your Most Recent Tobacco Screening? 01/06/2019 Information not available 03/25/2019 Do You Or Have You Ever Used Smokeless Tobacco? Former Smokeless Tobacco User Information not available 12/01/2020 General Stress Level Low [email or web address] Information not available 12/14/2015 Sex: Unknown Functional Status None recorded. Mental Status None recorded. Family History Relationship Description Onset Age of this Age Resolved Age Notes LastModified by Organization Details LastModified Time Mother Family history of Mother alive and well [email or web address] Not available 2015 11:46:01 Father Family history of Father alive with problem [email or web address] Not available 11:46:35 Father Hypertensive disorder hmesto Not available 2015 11:46:45 Father Diabetes mellitus [email or web address] Not available 2015 11:46:57 Brother Brother 53 with cancer at age 53 [email or web address] Not available 12/13/2015 11:48:10 Sister Sister with Brain tumor at age 5 [email or web address] Not available 12/13/2015 11:49:07 Medical History Condition Response Diabetes Y Coronary Artery Disease Y Hypertension Y Sleep Apnea Y GERD/Reflux Y Past Encounters Encounter ID Performer Location Encounter Start Date Encounter Closed Date Diagnosis/Indication Diagnosis SNOMED-CT Code Diagnosis ICD10 Code Diagnosis Note [id number] MD Christina Donohue Office [address] [place] [address] 12/14/2015 09:48:13 12/14/2015 11:02:30 Atypical chest pain 506829099 R07.89 Treadmill Myoview Stress test, has high Greencastle Risk score. Has Known CAD, or CAD risk equivalent . To look for any ischemia. Multi vess el coronary artery disease 533991372 I25.10 s/p CABGNow with fatigue Obstructiv e sleep apnea syndrome 02203699 G47.33 now not using Cpap Benign hypertension 1072 5009 I10 Seems to be well compensate d now Hyperlipidemia 58108892 E78.5 Needs to keep LDL less than 70, and HDL more than 40 Diabetes mellitus 385011 09 E11.9 [id number] MD Christina Donohue Office [address] [place] [address] 2016 10:19:31 06/04/2016 14:26:53 Hyperlipidemia 94171224 E78.5 Needs to keep LDL less than 70, and HDL more than 40 Atypical chest pain 1025 19996 R07.89 ResolvedSt ress test negative Multi vess el coronary artery disease 951296578 I25.10 s/p CABGNow stable Obstructiv e sleep apnea syndrome 82811373 G47.33 now not using Cpap Benign hypertension 1072 5009 I10 Seems to be well compensate d now Diabetes mellitus 585751 09 E11.9 [id number] MD Christina Donohue Office [address] [place] [address] 12/23/2016 12:30:34 12/23/2016 16:03:01 Hyperlipidemia 34200571 E78.5 Needs to keep LDL less than 70, and HDL more than 40 Atypical chest pain 1025 94929 R07.89 ResolvedSt ress test negative Multi vess el coronary artery disease 189283426 I25.10 s/p CABGNow stable, had steress tst Obstructiv e sleep apnea syndrome 47935021 G47.33 now not using Cpap Benign hypertension 1072 5009 I10 Seems to be well compensate d now Diabetes mellitus 937476 09 E11.9 treatment and evaluation by primary care doctor [id number] MD Christina Donohue Office [address] [place] [address] 06/23/2017 12:15:50 06/24/2017 16:35:33 Benign hypertension 41051750 I10 Seems to be well compensate d now Hyperlipidemia 99212981 E78.5 Needs to keep LDL less than 70, and HDL more than 40 Atypical chest pain 1025 81576 R07.89 ResolvedSt ress test negative Multi vess el coronary artery disease 381605131 I25.10 s/p CABGNow stable, had steress tst Obstructiv e sleep apnea syndrome 28305143 G47.33 now not using Cpap Diabetes mellitus 130047 09 E11.9 treatment and evaluation by primary care doctor Peripheral arterial occlusive disease 175280433 I73.9 Will get arterial doppler, to evaluate severity of peripheral vascular disease [id number] MD Christina Donohue Office [address] [place] [address] 12/24/2017 14:17:48 12/24/2017 15:52:16 Benign hypertension 30543848 I10 Seems to be well compensate d now Atypical chest pain 1025 16604 R07.89 Treadmill Myoview Stress test, has high Greencastle Risk score. Has Known CAD, or CAD risk equivalent . To look for any ischemia. Multi vess el coronary artery disease 558984156 I25.10 s/p CABGNow stable, had steress tst Obstructiv e sleep apnea syndrome 67229514 G47.33 now not using Cpap Diabetes mellitus 560760 09 E11.9 treatment and evaluation by primary care [email or web address] 09/17 :Hgb A1c: 7.3 Peripheral arterial occlusive disease 752389560 I73.9 Will get arterial doppler, to evaluate severity of peripheral vascular disease Dyslipidemia 618085202 E 78.5 Needs to keep LDL less than 70, and HDL more than 40 [id number] MD Christina Donohue Office [address] [place] [address] 06/24/2018 14:10:12 06/24/2018 15:29:47 Benign hypertension 08255122 I10 Seems to be well compensate d now Atypical chest pain 1025 31339 R07.89 Treadmill Myoview Stress test was negative Multi vess el coronary artery disease 136316577 I25.10 s/p CABGNow stable, had steress tst Obstructiv e sleep apnea syndrome 47208320 G47.33 now not using Cpap Diabetes mellitus 778337 09 E11.9 treatment and evaluation by primary care [email or web address] 09/17 :Hgb A1c: 7.3 Peripheral arterial occlusive disease 652909240 I73.9 Mildmaxima l Medical treatment Dyslipidemia 891328554 E 78.5 Needs to keep LDL less than 70, and HDL more than 40 Will get lipid profile results from PCP [id number] MD Christina Donohue Office [address] [place] [address] 01/06/2019 16:12:43 01/06/2019 16:57:52 Benign hypertension 56348254 I10 Now well controlled . Obstructiv e sleep apnea syndrome 19841270 G47.33 Pt is on CPAP and is compliant. Patient is benefittin g with CPAP therapy and will continue nightly use. Diabetes mellitus 332708 09 E11.9 Last A1C last was 7.1% Treatment and evaluation by primary care doctor. Discussed importance of adequate glycemic control to minimize cardiovasc ular disease progressio n. A1C goal of < 7% for type 2 DM Peripheral arterial occlusive disease 463840622 I73.9 Mild. No claudicati on.maximal medical treatment Dyslipidemia 873197210 E 78.5 Needs to keep LDL less than 70, and HDL more than 40 Will get lipid profile. Continue statin therapy Coronary arteriosclerosis 35253078 I25.10 s/p stent placement x2 (10/15/12) Had negative stress test done in 01/03/18 with normal LV systolic function, EF 60%. Continue maximal medical treatment and risk factor modificati on. ASA and statin. Edema of l ower extremity 769457136 R60.0 Mild. Takes Lasix PRN. Complaint with CPAP now. Dyspnea on exertion 6084 5006 R06.09 Had negative stress test done in 01/03/18 with normal LV systolic function, EF 60%. Will get echo to look for any structural heart disease [id number] MD Christina Donohue Office [address] [place] [address] 07/12/2019 10:56:29 07/12/2019 11:53:49 Coronary arteriosclerosis 99749355 I25.10 s/p stent placement x2 (10/15/12) Had negative stress test done in 01/03/18 with normal LV systolic function, EF 60%. Continue maximal medical treatment and risk factor modificati on. ASA and statin. Dyspnea on exertion 6084 5006 R06.09 Had negative stress test done in 01/03/18 with normal LV systolic function, EF 60%. Will get echo to look for any structural heart disease Benign hypertension 1072 5009 I10 Now well controlled . Obstructiv e sleep apnea syndrome 92328914 G47.33 On Cpap, seems to be well controlled now.He is compliant, nd he is benefiting from Cpap therapy, will continue to use Cpap at night Peripheral arterial occlusive disease 745651452 I73.9 Mild. No claudicati on.maximal medical treatment. Will get arterial duplex, to evaluate severity of peripheral vascular disease Dyslipidemia 466812802 E 78.5 Needs to keep LDL less than 70, and HDL more than 40 Will get lipid profile. Continue statin therapy Diabetes mellitus 246295 09 E11.9 Last A1C last was 7.1% Treatment and evaluation by primary care doctor. Discussed importance of adequate glycemic control to minimize cardiovasc ular disease progressio n. A1C goal of < 7% for type 2 DM Edema of l ower extremity 031898931 R60.0 Mild. Takes Lasix PRN. Complaint with CPAP now. [id number] Neel Armendariz Office [address] [place] [address] 12/04/2020 16:10:00 12/04/2020 17:22:10 Coronary arteriosclerosis 21056114 I25.10 s/p LCx and diagonal PCI ( 3) Now with occasional chest pain Treadmill Myoview Stress test, has high Greencastle Risk score. Has Known CAD, or CAD risk equivalent . To look for any ischemia. Dyspnea on exertion 6084 5006 R06.09 Resolved Echo 01/27/2019 : LV chamber is mildly dilated. LV wall thickness is mild to moderately increased. There is normal systolic function and contractil ity. The estimated left ventricle ejection fraction is 55-60%(nor mal). Normal left atrial pressure and grade I diastolic dysfunctio n. Left atrium chamber is mildly dilated. The aortic valve is mildly calcified. There is mild thickening of mitral valve anterior leaflet. There is mild tricuspid regurgitat ion. Benign hypertension 1072 5009 I10 Well controlled on current regimen Obstructiv e sleep apnea syndrome 51381930 G47.33 Compliant with nightly CPAP use Peripheral arterial occlusive disease 468319498 I73.9 Mild, asymptomat ic. HILDA 07/17/2017 : Abnormal ankle-brac hial index, calcified non-compre ssibile lower extremity arteries. Dyslipidemia 328753322 E 78.5 Needs to keep LDL less than 70, and HDL more than 40. 01/20/2019 LDL 103 Continue atorvastat in 80mg nightly Will get fasting lipids for follow-up Diabetes mellitus 318698 09 E11.9 Treatment and evaluation by primary care doctor Discussed importance of adequate glycemic control to minimize cardiovasc ular disease progressio n, A1C goal of < 7% for type 2 DM. Edema of l ower extremity 129065662 R60.0 Stable with Lasix PRN Improved with CPAP use Obtain echo to evaluate for structural /functiona l disease [id number] Anne-Marie Coffey [facility] OFF[facility] [place] [address] 01/05/2021 10:51:09 01/05/2021 11:33:02 Coronary arteriosclerosis 76486012 I25.10 s/p LCx and diagonal PCI ( 3) Dyspnea on exertion 6084 5006 R06.09 Resolved Echo 01/27/2019 : LV chamber is mildly dilated. LV wall thickness is mild to moderately increased. There is normal systolic function and contractil ity. The estimated left ventricle ejection fraction is 55-60%(nor mal). Normal left atrial pressure and grade I diastolic dysfunctio n. Left atrium chamber is mildly dilated. The aortic valve is mildly calcified. There is mild thickening of mitral valve anterior leaflet. There is mild tricuspid regurgitat ion. Benign hypertension 1072 5009 I10 Well controlled on current regimen Obstructiv e sleep apnea syndrome 46973615 G47.33 Compliant with nightly CPAP use Peripheral arterial occlusive disease 941816455 I73.9 Mild, asymptomat ic. HILDA 07/17/2017 : Abnormal ankle-brac hial index, calcified non-compre ssibile lower extremity arteries. Dyslipidemia 292729549 E 78.5 Needs to keep LDL less than 70, and HDL more than 40. 01/20/2019 LDL 103 Continue atorvastat in 80mg nightly Will get fasting lipids for follow-up Diabetes mellitus 632757 09 E11.9 Treatment and evaluation by primary care doctor Discussed importance of adequate glycemic control to minimize cardiovasc ular disease progressio n, A1C goal of < 7% for type 2 DM. Edema of l ower extremity 372944082 R60.0 Stable with Lasix PRN Improved with CPAP use Obtain echo to evaluate for structural /functiona l disease Atypical chest pain 1025 39984 R07.89 The patient will be scheduled for left heart catheteriz ation, with coronary angiogram, and possible PTCA/Stent . The procedure was discussed with the patient, and risks, benefits, and alternativ e options were explained. The patient was given informatio n about heart catheteriz ation and interventi onal procedures . The patient agrees to proceed. Start SL NTG PRN 01/05/2021 [id number] Anne-Marie Coffey [facility] Office [facility] [place] [address] 02/05/2021 16:22:17 02/05/2021 16:44:13 Coronary arteriosclerosis 32561356 I25.10 s/p LCx and diagonal PCI ( 3) s/p OM PCI ( 1) Continue Brilinta 90 mg BID while current supply lasts then will switch to Plavix d/t cost Dyspnea on exertion 6084 5006 R06.09 Resolved Echo 12/26/2020 : Study quality: Technicall y difficult. LV chamber size is normal. LV wall thickness is mildly increased. There is normal global systolic function and contractil ity. The estimated left ventricle ejection fraction is 55-60% (normal). Normal left atrial pressure with grade I diastolic dysfunctio n. Left atrium chamber is mildly dilated. There is mild thickening of the mitral valve anterior leaflet. There is trace mitral regurgitat ion. There is mild tricuspid regurgitat ion. There is mild pulmonary hypertensi on. Estimated RVSP systolic pressure is 38 mmHg. Benign hypertension 1072 5009 I10 Well controlled on current regimen Obstructiv e sleep apnea syndrome 18930903 G47.33 Compliant with nightly CPAP use Peripheral arterial occlusive disease 341285733 I73.9 Mild, remains asymptomat ic. HILDA 07/17/2017 : Abnormal ankle-brac hial index, calcified non-compre ssibile lower extremity arteries. Dyslipidemia 175288427 E 78.5 Needs to keep LDL less than 70, and HDL more than 40. 01/04/2021 LDL 70 Continue atorvastat in 80 mg nightly Will get fasting lipids for follow-up Diabetes mellitus 271895 09 E11.9 Treatment and evaluation by primary care doctor Discussed importance of adequate glycemic control to minimize cardiovasc ular disease progressio n, A1C goal of < 7% for type 2 DM. Edema of l ower extremity 592174099 R60.0 Stable with Lasix PRN Leg elevation and low salt diet advised Atypical chest pain 1025 55306 R07.89 Resolved PCI as above [id number] Shabbir Mckeon MD [facility] [place] [address] 06/12/2021 15:23:14 06/12/2021 15:44:46 Benign hypertension 07240904 I10 Well controlled on current regimen Coronary arteriosclerosis 95750726 I25.10 Hyperlipidemia 03258078 E78.5 Needs to keep LDL less than 70, and HDL more than 40 Obstructiv e sleep apnea syndrome 12570214 G47.33 Compliant with nightly CPAP use 13209 Shabbir Mckeon MD [facility] [place] [address] 12/11/2021 15:29:21 12/11/2021 16:28:10 Benign hypertension 14778491 I10 Well controlled on current regimen Coronary arteriosclerosis 02802270 I25.10 Hyperlipidemia 95499212 E78.5 Needs to keep LDL less than 70, and HDL more than 40 Obstructiv e sleep apnea syndrome 41644187 G47.33 Compliant with nightly CPAP use Edema of l ower extremity 645306535 R60.0 Stable with Lasix PRN Leg elevation and low salt diet advised [id number] Shabbir Mckeon MD [facility] [address] [place] [address] 03/12/2022 12:46:48 03/12/2022 13:56:25 Congestive heart failure 29051878 I50.9 still SOBObtain echo to evaluate for structural /functiona l disease. continue Maximal medical treatment Benign hypertension 1072 5009 I10 Well controlled on current regimen Coronary arteriosclerosis 53079195 I25.10 S/p 3 stenthe is asprin 325he is on plavix will hold it is been one year since his stent Hyperlipidemia 08123877 E78.5 Needs to keep LDL less than 70, and HDL more than 40 Obstructiv e sleep apnea syndrome 99938195 G47.33 Compliant with nightly CPAP use Edema of l ower extremity 230601764 R60.0 Stable with Lasix PRN Leg elevation and low salt diet advised 63944 Shabbir Mckeon MD [facility] [place] [address] 09/17/2022 13:54:27 09/17/2022 14:48:18 Congestive heart failure 58204154 I50.9 still SOBObtain echo to evaluate for structural /functiona l disease. continue Maximal medical treatment Benign hypertension 1072 5009 I10 Well controlled on current regimen Coronary arteriosclerosis 26581997 I25.10 S/p 3 stenthe is on asprin 325 Hyperlipidemia 46584031 E78.5 Needs to keep LDL less than 70, and HDL more than 40 Will get lipid profile results from PCP Obstructiv e sleep apnea syndrome 29188577 G47.33 Compliant with nightly CPAP use Edema of l ower extremity 923542498 R60.0 Stable with Lasix PRN Leg elevation and low salt diet advised 65898 Shabbir Mckeon MD [facility] [address] [place] [address] 03/18/2023 13:42:37 03/18/2023 14:32:52 Congestive heart failure 26814819 I50.9 Resolved There is normal global systolic functionan d contractil ity. The estimated left ventricle ejection fraction is 55-60% (normal). continue Maximal medical treatment Benign hypertension 1072 5009 I10 Well controlled on current regimen Coronary arteriosclerosis 90260027 I25.10 S/p 3 stenthe is on asprin 325 will keep it for now until stress testdue for stress test but is dealing with Urinary stone issue now and would like to pos pond the stress test for now Hyperlipidemia 07232171 E78.5 Needs to keep LDL less than 70, and HDL more than 40last LDL was 88 mg and he is taking lipitor 80 Will get lipid profile results from PCP Obstructiv e sleep apnea syndrome 75095924 G47.33 Compliant with nightly CPAP use Edema of l ower extremity 783011123 R60.0 Stable with Lasix PRN Leg elevation and low salt diet advised 03094 Shabbir Mckeon MD [facility] [place] [address] 06/17/2023 14:01:08 06/17/2023 14:38:37 Congestive heart failure 01811092 I50.9 Resolved There is normal global systolic functionan d contractil ity. The estimated left ventricle ejection fraction is 55-60% (normal). continue Maximal medical treatment Benign hypertension 1072 5009 I10 Well controlled on current regimen Coronary arteriosclerosis 40378434 I25.10 S/p 3 stenthe is on asprin 325 will keep it for now until stress testdue for stress test but is dealing with Urinary stone issue now and would like to pos pond the stress test for now Hyperlipidemia 08349561 E78.5 Needs to keep LDL less than 70, and HDL more than 40last LDL was 88 mg and he is taking lipitor 80 Will get lipid profile results from PCP Obstructiv e sleep apnea syndrome 13041503 G47.33 Compliant with nightly CPAP use Edema of l ower extremity 796343265 R60.0 Stable with Lasix Leg elevation and low salt diet advisedObt ain echo to evaluate for structural /functiona l disease. [id number] Shabbir Mckeon MD [facility] [place] [address] 12/16/2023 11:29:36 12/16/2023 12:04:34 Congestive heart failure 77059689 I50.9 Resolved There is normal global systolic functionan d contractil ity. The estimated left ventricle ejection fraction is 55-60% (normal). Benign hypertension 1072 5009 I10 Well controlled on current regimen Coronary arteriosclerosis 08960568 I25.10 S/p 3 stenthe is on asprin 325 will keep it for now until stress test Hyperlipidemia 76720349 E78.5 Needs to keep LDL less than 70, and HDL more than 40last LDL was 88 mg and he is taking lipitor 80 Will get lipid profile results from PCP Obstructiv e sleep apnea syndrome 49081195 G47.33 Compliant with nightly CPAP use Edema of l ower extremity 531579398 R60.0 Stable with Lasix Leg elevation and low salt diet advised [id number] Shabbir Mckeon MD [facility] [address] [place] [address] 06/08/2024 10:46:06 06/08/2024 11:55:33 Congestive heart failure 12255348 I50.9 Resolved There is normal global systolic functionan d contractil ity. The estimated left ventricle ejection fraction is 55-60% (normal). Benign hypertension 1072 5009 I10 Well controlled on current regimen Coronary arteriosclerosis 39852400 I25.10 S/p 3 stenthe is on asprin 325 will keep it for now until stress test Hyperlipidemia 12939761 E78.5 Needs to keep LDL less than 70, and HDL more than 40last LDL was 88 mg and he is taking lipitor 80 Will get lipid profile results from PCP Obstructiv e sleep apnea syndrome 15192608 G47.33 Compliant with nightly CPAP use Edema of l ower extremity 128352425 R60.0 Stable with Lasix Leg elevation and low salt diet advised Atypical chest pain 1025 46107 R07.89 Treadmill Myoview Stress test, has high Greencastle Risk score. Has Known CAD, or CAD risk equivalent . To look for any ischemia. [id number] Shabbir Mckeon MD [facility] [address] [place] [address] 06/29/2024 10:40:01 06/29/2024 11:11:02 Congestive heart failure 35520306 I50.9 Resolved There is normal global systolic functionan d contractil ity. The estimated left ventricle ejection fraction is 55-60% (normal). Benign hypertension 1072 5009 I10 Well controlled on current regimen Coronary arteriosclerosis 85222305 I25.10 S/p 3 stenthe is on asprin 325 stress test was negative Hyperlipidemia 13497938 E78.5 Needs to keep LDL less than 70, and HDL more than 40last LDL was 91 mg and he is taking lipitor 80will change to Crestor 20 Obstructiv e sleep apnea syndrome 75020889 G47.33 Compliant with nightly CPAP use Edema of l ower extremity 380204112 R60.0 Stable with Lasix Leg elevation and low salt diet advised [id number] Shabbir Mckeon MD [facility] [address] [place] [address] 12/14/2024 12:26:02 12/14/2024 13:16:54 Congestive heart failure 16907896 I50.9 Resolved There is normal global systolic functionan d contractil ity. The estimated left ventricle ejection fraction is 55-60% (normal). Benign hypertension 1072 5009 I10 Well controlled on current regimen Coronary arteriosclerosis 69575151 I25.10 S/p 3 stenthe is on asprin 325 stress test was negative Hyperlipidemia 93636640 E78.5 Needs to keep LDL less than 70, and HDL more than 40last LDL was 91 mg and he is taking lipitor 80will change to Crestor 20 Obstructiv e sleep apnea syndrome 78038664 G47.33 Compliant with nightly CPAP use Edema of l ower extremity 809774448 R60.0 Stable with Lasix Leg elevation and low salt diet advised Health Concerns Section Related Observation LastModified by Organization Detai ls LastModified Time None Recorded Concern Status LastModified by Organization Details LastModified Time None Recorded Advance Directives Directive None Recorded Payers Encounter Date Sequence Insurance Name Policy Number Policy Phillips Covered Member ID Phillips Member ID Guarantor Name 06/17/2023 1 [employer] (MEDICARE REPLACEMENT PPO) [id number] Anibal Granda [id number] Anibal Granda 12/16/2023 1 [employer] (MEDICARE REPLACEMENT PPO) [id number] Anibal Granda [id number] Anibal Granda 06/08/2024 1 [employer] (MEDICARE REPLACEMENT PPO) [id number] 1 Anibal Granda [id number] Anibal Granda 06/29/2024 1 [employer] (MEDICARE REPLACEMENT PPO) [id number] Anibal Granda [id number] Anibal Granda 12/14/2024 1 [employer] (MEDICARE REPLACEMENT PPO) [id number] Anibal Granda [id number] Anibal Granda Notes Date Note Type Note Provider Name and Address Organization Details Recorded Time 06/17/2023 text/html 06/17/23CC : Car diac follow up, dyspnea on [id number] white man with a PMH of coronary artery disease s/p stent placement x2 (10/15/12), stent OM (2020), PVD, hyperlipidemia, diabetes mellitus, former tobacco dependence, JOHN, and obesity presents is today for 3 month follow-up. He was last seen in the clinic on 03/18/23, since then he had URI last monthHe denies ER visits and hospitalizations since he was last seen. Today reports:Denies chest pain.Denies shortness of breath at rest. Has mild dyspnea on exertion.No orthopnea. No PNDs.Denies heart palpitations.Denies dizziness. Denies syncope or near syncope.No ankle or leg edema.No major bleeding events.No reported side effects from medications. Taking medications as prescribed with no missed doses.Denies snoring, daytime somnolence and AM headache.*Last LDL was 88 done on 03/12/22.Pt takes atorvastatin 80 mg. Previously:He went to the hospital for lithotripsy. *Had ECHO on 03/27/22 showed LV chamber size is normal. There is normal global systolic function and contractility. The estimated left ventricle ejection fraction is 55-60% (normal). He has dyspnea on exertion.He exercising in the water.He had several surgeries in his back.He underwent LHC which revealed 90% stenosis of his OM. He had subsequent PCI to his OM and was started on Brilinta 90 mg BID. He reported some persistent dyspnea on exertion but states it is about the same from prior to his LHC. Has been active but not exercising, elects to exercise at home vs cardiac rehab. * TDM 12/13/20 :Positive stress test for ischemia. Mildly reversible defect consistent with ischemia in lizzie septal area. Normal LV systolic function. Abnormal stress test. Artifact noted. Compared to last study in 01/13/18, lizzie-septal area ischemia is new. Exercise tolerance : Poor Hypertensive response with exercise. LVEF 57% *Had negative stress test done in 01/03/18 with normal LV systolic function, EF 60%. *Had abnormal HILDA 07/17/17 showing calcified non-compressible lower extremity arteries.Results from this visit, or from the past:01/20/19: Na 140 ,K 4.0 , CL 102 ,CO2 28 , GLU 198 , BUN 16, CR 0.82, 01/20/19: TC 172 ,TG 131 ,HDL 46 ,LDL 103, lipid panel, blood 05-01-2017 04/01/17 : SOD 141,K 4.4,CL 104,CO2 26,GLU 158,BUN 19,CR 0.79,AST 18,ALT 32,TG 288,TC 151,HDL 44,LDL 69, TSH 1.18. 04/01/17 : SOD 141,K 4.4,CL 104,CO2 26,GLU 158,BUN 19,CR 0.79,AST 18,ALT 32,TG 288,TC 151,HDL 44,LDL 69, TSH 1.18. CMP, serum or plasma 01-08-2017 GLU:131, BUN:17, CR:0.76, NA:141, K:4.1, CL 105, CO2:25,AST:17, ALT:27 02/16/15 : TC 154. TG 223. LDL 70. HDL 39. AST 19. ALT 28 . 12/04/20 EKG: [facility] 06-24-2018 EKG 06/24/18 : Abnormality of unclear origin Inverted T wave in I EKG 12/24/17: normal sinus rhythm within normal limits EK12/23/16 Sinus Rhythm. Right axis -consider right ventricular hypertrophy. Abnormal electrocardiogram 06-23-2017 EK06/23/17 Sinus rhythm. Right axis -consider right ventricular hypertrophy. Left atrial enlargement. Abnormal 12/14/15 EKG: Sinus Rhythm Right axis consider right ventricular hypertrophy. Rightward P/QRS axis and rotation-possible pulmonary disease 12/26/20 ECHO: Study quality: Technically difficult. LV chamber size is normal. LV wall thickness is mildly increased. There is normal global systolic function and contractility. The estimated left ventricle ejection fraction is 55-60% (normal). Normal left atrial pressure with grade I diastolic dysfunction. Left atrium chamber is mildly dilated. There is mild thickening of the mitral valve anterior leaflet. There is trace mitral regurgitation. There is mild tricuspid regurgitation. There is mild pulmonary hypertension. Estimated RVSP systolic pressure is 38 mmHg. 01/27/19 ECHO: LV chamber is mildly dilated. LV wall thickness is mild to moderately increased. There is normal systolic function and contractility. The estimated left ventricle ejection fraction is 55-60%(normal). Normal left atrial pressure and grade I diastolic dysfunction. Left atrium chamber is mildly dilated. The aortic valve is mildly calcified. There is mild thickening of mitral valve anterior leaflet. There is mild tricuspid regurgitation. 01/20/19 / report/ HDL 46, LDL 103H, TR 131 , GL 198H , NA 140, K 4.0, CH 102, CO2 28 ,C 9.4 12/13/20 TDM Positive stress test for ischemia. Mildly reversible defect consistent with ischemia in lizzie septal area. Normal LV systolic function. Abnormal stress test. Artifact noted. Compared to last study in 01/13/18, lizzie-septal area ischemia is new. Exercise tolerance : Poor Hypertensive response with exercise. LVEF 57% Treadmill Nuclear Stress Test 01/13/18 : Negative stress test. Normal LV systolic function. Compared to last study in 2015 there are no changes. Average exercise tolerance. LVEF 60%. US, Doppler, Arterial 07/17/17: Abnormal ankle-brachial index, calcified non-compressibile lower extremity arteries. TREADMILL NUCLEAR STRESS TEST 01/03/16: Negative stress test for ischemia. Normal LV systolic function. 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 LVEF 59%. US, doppler, arterial 07-01-2017 US, Doppler, Arterial 07/17/17: Abnormal ankle-brachial index, calcified non-compressibile lower extremity arteries. US, Doppler, Arterial 07/17/17: Abnormal ankle-brachial index, calcified non-compressibile lower extremity arteries. Shabbir Mckeon MD [address] [place], [address], [place] [facility] 06/17/2023 14:34:27 12/16/2023 text/html 12/16/23CC : Car [facility] follow [id number] white man with a PMH of coronary artery disease s/p stent placement x2 (10/15/12), stent OM (2020), PVD, hyperlipidemia, diabetes mellitus, former tobacco dependence, JOHN, and obesity presents is today for 6 month follow-up. He was last seen in the clinic on 06/17/23, since then he is doing wellHe denies ER visits and hospitalizations since he was last seen. Today reports:no ccDenies chest pain.Denies shortness of breath at rest. Has mild dyspnea on exertion.No orthopnea. No PNDs.Denies heart palpitations.Denies dizziness. Denies syncope or near syncope.No ankle or leg edema.No major bleeding events.No reported side effects from medications. Taking medications as prescribed with no missed doses.Denies snoring, daytime somnolence and AM headache.*Last LDL was 88 done on 03/12/22.Pt takes atorvastatin 80 mg. *Had ECHO on 06/27/23 showed LV chamber size is normal. LV wall thickness is mildly increased. The estimated left ventricle ejection fraction is 50-55% (normal). LV relaxation is impaired. Left Atrium chamber is mildly dilated. The aortic valve is mildly calcified. There is mild aortic root calcification. There is mild thickening of the mitral valve anterior leaflet. There is trivial pulmonic regurgitation. * TDM 12/13/20 :Positive stress test for ischemia. Mildly reversible defect consistent with ischemia in lizzie septal area. Normal LV systolic function. Abnormal stress test. Artifact noted. Compared to last study in 01/13/18, lizzie-septal area ischemia is new. Exercise tolerance : Poor Hypertensive response with exercise. LVEF 57% *Had negative stress test done in 01/03/18 with normal LV systolic function, EF 60%. *Had abnormal HILDA 07/17/17 showing calcified non-compressible lower extremity arteries.Results from this visit, or from the past:01/20/19: Na 140 ,K 4.0 , CL 102 ,CO2 28 , GLU 198 , BUN 16, CR 0.82, 01/20/19: TC 172 ,TG 131 ,HDL 46 ,LDL 103, lipid panel, blood 05-01-2017 04/01/17 : SOD 141,K 4.4,CL 104,CO2 26,GLU 158,BUN 19,CR 0.79,AST 18,ALT 32,TG 288,TC 151,HDL 44,LDL 69, TSH 1.18. 04/01/17 : SOD 141,K 4.4,CL 104,CO2 26,GLU 158,BUN 19,CR 0.79,AST 18,ALT 32,TG 288,TC 151,HDL 44,LDL 69, TSH 1.18. CMP, serum or plasma 01-08-2017 GLU:131, BUN:17, CR:0.76, NA:141, K:4.1, CL 105, CO2:25,AST:17, ALT:27 02/16/15 : TC 154. TG 223. LDL 70. HDL 39. AST 19. ALT 28 . 12/04/20 EKG: sinus rhythm EKg normal sinus rhythm WNL rm 07/12/19 electrocardiogram 06-24-2018 EKG 06/24/18 : Abnormality of unclear origin Inverted T wave in I EKG 12/24/17: normal sinus rhythm within normal limits EK12/23/16 Sinus Rhythm. Right axis -consider right ventricular hypertrophy. Abnormal electrocardiogram 06-23-2017 EK06/23/17 Sinus rhythm. Right axis -consider right ventricular hypertrophy. Left atrial enlargement. Abnormal 12/14/15 EKG: Sinus Rhythm Right axis consider right ventricular hypertrophy. Rightward P/QRS axis and rotation-possible pulmonary disease 12/26/20 ECHO: Study quality: Technically difficult. LV chamber size is normal. LV wall thickness is mildly increased. There is normal global systolic function and contractility. The estimated left ventricle ejection fraction is 55-60% (normal). Normal left atrial pressure with grade I diastolic dysfunction. Left atrium chamber is mildly dilated. There is mild thickening of the mitral valve anterior leaflet. There is trace mitral regurgitation. There is mild tricuspid regurgitation. There is mild pulmonary hypertension. Estimated RVSP systolic pressure is 38 mmHg. 01/27/19 ECHO: LV chamber is mildly dilated. LV wall thickness is mild to moderately increased. There is normal systolic function and contractility. The estimated left ventricle ejection fraction is 55-60%(normal). Normal left atrial pressure and grade I diastolic dysfunction. Left atrium chamber is mildly dilated. The aortic valve is mildly calcified. There is mild thickening of mitral valve anterior leaflet. There is mild tricuspid regurgitation. 01/20/19 / specimen report/ HDL 46, LDL 103H, TR 131 , GL 198H , NA 140, K 4.0, CH 102, CO2 28 ,C 9.4 12/13/20 TDM Positive stress test for ischemia. Mildly reversible defect consistent with ischemia in lizzie septal area. Normal LV systolic function. Abnormal stress test. Artifact noted. Compared to last study in 01/13/18, lizzie-septal area ischemia is new. Exercise tolerance : Poor Hypertensive response with exercise. LVEF 57% Treadmill Nuclear Stress Test 01/13/18 : Negative stress test. Normal LV systolic function. Compared to last study in 2015 there are no changes. Average exercise tolerance. LVEF 60%. US, Doppler, Arterial 07/17/17: Abnormal ankle-brachial index, calcified non-compressibile lower extremity arteries. TREADMILL NUCLEAR STRESS TEST 01/03/16: Negative stress test for ischemia. Normal LV systolic function. 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 LVEF 59%. US, doppler, arterial 07-01-2017 US, Doppler, Arterial 07/17/17: Abnormal ankle-brachial index, calcified non-compressibile lower extremity arteries. US, Doppler, Arterial 07/17/17: Abnormal ankle-brachial index, calcified non-compressibile lower extremity arteries. Shabbir Mckeon MD [address] [place], [address], [facility] 12/16/2023 11:58:40 06/08/2024 text/html *lipid /08/24CC : Cardiac follow up, .leg [id number] white man with a PMH of coronary artery disease s/p stent placement x2 (10/15/12), stent OM (2020), PVD, hyperlipidemia, diabetes mellitus, former tobacco dependence, JOHN, and obesity presents is today for 6 month follow-up. He was last seen in the clinic on 12/16/23, since then he is doing wellHe denies ER visits and hospitalizations since he was last seen. Has chest pain.Denies shortness of breath at rest. Has mild dyspnea on exertion.No orthopnea. No PNDs.Denies heart palpitations.Denies dizziness. Denies syncope or near syncope.Has leg edema.No major bleeding events.No reported side effects from medications. Taking medications as prescribed with no missed doses.Denies snoring, daytime somnolence and AM headache.*Last LDL was 88 done on 03/12/22.Pt takes atorvastatin 80 mg. Previously:*Had ECHO on 06/27/23 showed LV chamber size is normal. LV wall thickness is mildly increased. The estimated left ventricle ejection fraction is 50-55% (normal). LV relaxation is impaired. Left Atrium chamber is mildly dilated. The aortic valve is mildly calcified. There is mild aortic root calcification. There is mild thickening of the mitral valve anterior leaflet. There is trivial pulmonic regurgitation. * TDM 12/13/20 :Positive stress test for ischemia. Mildly reversible defect consistent with ischemia in lizzie septal area. Normal LV systolic function. Abnormal stress test. Artifact noted. Compared to last study in 01/13/18, lizzie-septal area ischemia is new. Exercise tolerance : Poor Hypertensive response with exercise. LVEF 57% *Had negative stress test done in 01/03/18 with normal LV systolic function, EF 60%. *Had abnormal HILDA 07/17/17 showing calcified non-compressible lower extremity arteries.Results from this visit, or from the past:01/20/19: Na 140 ,K 4.0 , CL 102 ,CO2 28 , GLU 198 , BUN 16, CR 0.82, 01/20/19: TC 172 ,TG 131 ,HDL 46 ,LDL 103, lipid panel, blood 05-01-2017 04/01/17 : SOD 141,K 4.4,CL 104,CO2 26,GLU 158,BUN 19,CR 0.79,AST 18,ALT 32,TG 288,TC 151,HDL 44,LDL 69, TSH 1.18. 04/01/17 : SOD 141,K 4.4,CL 104,CO2 26,GLU 158,BUN 19,CR 0.79,AST 18,ALT 32,TG 288,TC 151,HDL 44,LDL 69, TSH 1.18. CMP, serum or plasma 01-08-2017 GLU:131, BUN:17, CR:0.76, NA:141, K:4.1, CL 105, CO2:25,AST:17, ALT:27 02/16/15 : TC 154. TG 223. LDL 70. HDL 39. AST 19. ALT 28 . 12/04/20 EKG: sinus rhythm EKg normal sinus rhythm WNL 07/12/19 electrocardiogram 06-24-2018 EKG 06/24/18 : Abnormality of unclear origin Inverted T wave in I EKG 12/24/17: normal sinus rhythm within normal limits EK12/23/16 Sinus Rhythm. Right axis -consider right ventricular hypertrophy. Abnormal electrocardiogram 06-23-2017 EK06/23/17 Sinus rhythm. Right axis -consider right ventricular hypertrophy. Left atrial enlargement. Abnormal 12/14/15 EKG: Sinus Rhythm Right axis consider right ventricular hypertrophy. Rightward P/QRS axis and rotation-possible pulmonary disease 12/26/20 ECHO: Study quality: Technically difficult. LV chamber size is normal. LV wall thickness is mildly increased. There is normal global systolic function and contractility. The estimated left ventricle ejection fraction is 55-60% (normal). Normal left atrial pressure with grade I diastolic dysfunction. Left atrium chamber is mildly dilated. There is mild thickening of the mitral valve anterior leaflet. There is trace mitral regurgitation. There is mild tricuspid regurgitation. There is mild pulmonary hypertension. Estimated RVSP systolic pressure is 38 mmHg. 01/27/19 ECHO: LV chamber is mildly dilated. LV wall thickness is mild to moderately increased. There is normal systolic function and contractility. The estimated left ventricle ejection fraction is 55-60%(normal). Normal left atrial pressure and grade I diastolic dysfunction. Left atrium chamber is mildly dilated. The aortic valve is mildly calcified. There is mild thickening of mitral valve anterior leaflet. There is mild tricuspid regurgitation. 01/20/19 / report/ HDL 46, LDL 103H, TR 131 , GL 198H , NA 140, K 4.0, CH 102, CO2 28 ,C 9.4 12/13/20 TDM Positive stress test for ischemia. Mildly reversible defect consistent with ischemia in lizzie septal area. Normal LV systolic function. Abnormal stress test. Artifact noted. Compared to last study in 01/13/18, lizzie-septal area ischemia is new. Exercise tolerance : Poor Hypertensive response with exercise. LVEF 57% Treadmill Nuclear Stress Test 01/13/18 : Negative stress test. Normal LV systolic function. Compared to last study in 2015 there are no changes. Average exercise tolerance. LVEF 60%. US, Doppler, Arterial 07/17/17: Abnormal ankle-brachial index, calcified non-compressibile lower extremity arteries. TREADMILL NUCLEAR STRESS TEST 01/03/16: Negative stress test for ischemia. Normal LV systolic function. 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 LVEF 59%. US, doppler, arterial 07-01-2017 US, Doppler, Arterial 07/17/17: Abnormal ankle-brachial index, calcified non-compressibile lower extremity arteries. US, Doppler, Arterial 07/17/17: Abnormal ankle-brachial index, calcified non-compressibile lower extremity arteries. Shabbir Mckeon MD [address] [place], [address], [place] [facility] 06/08/2024 11:51:28 06/29/2024 text/html *lipid [id number]/29/24CC : Cardiac follow up, Positive stress [id number] white man with a PMH of coronary artery disease s/p stent placement x2 (10/15/12), stent OM (2020), PVD, hyperlipidemia, diabetes mellitus, former tobacco dependence, JOHN, and obesity presents is today for follow-up with positive stress test. He was last seen in the clinic on 06/08/24 since then he had a Lexiscan with no ischemiaHe denies ER visits and hospitalizations since he was last seen. Today reports:Denies chest pain.Denies shortness of breath at rest. Has mild dyspnea on exertion.No orthopnea. No PNDs.Denies heart palpitations.Denies dizziness. Denies syncope or near syncope.No ankle or leg edema.No major bleeding events.No reported side effects from medications. Taking medications as prescribed with no missed doses.Denies snoring, daytime somnolence and AM headache.*Last LDL was 88 done on 03/12/22.Pt takes atorvastatin 80 mg. Previously:*Had ECHO on 06/27/23 showed LV chamber size is normal. LV wall thickness is mildly increased. The estimated left ventricle ejection fraction is 50-55% (normal). LV relaxation is impaired. Left Atrium chamber is mildly dilated. The aortic valve is mildly calcified. There is mild aortic root calcification. There is mild thickening of the mitral valve anterior leaflet. There is trivial pulmonic regurgitation. * TDM 12/13/20 :Positive stress test for ischemia. Mildly reversible defect consistent with ischemia in lizzie septal area. Normal LV systolic function. Abnormal stress test. Artifact noted. Compared to last study in 01/13/18, lizzie-septal area ischemia is new. Exercise tolerance : Poor Hypertensive response with exercise. LVEF 57% *Had negative stress test done in 01/03/18 with normal LV systolic function, EF 60%. *Had abnormal HILDA 07/17/17 showing calcified non-compressible lower extremity arteries.Results from this visit, or from the past:01/20/19: Na 140 ,K 4.0 , CL 102 ,CO2 28 , GLU 198 , BUN 16, CR 0.82, 01/20/19: TC 172 ,TG 131 ,HDL 46 ,LDL 103, lipid panel, blood 05-01-2017 04/01/17 : SOD 141,K 4.4,CL 104,CO2 26,GLU 158,BUN 19,CR 0.79,AST 18,ALT 32,TG 288,TC 151,HDL 44,LDL 69, TSH 1.18. 04/01/17 : SOD 141,K 4.4,CL 104,CO2 26,GLU 158,BUN 19,CR 0.79,AST 18,ALT 32,TG 288,TC 151,HDL 44,LDL 69, TSH 1.18. CMP, serum or plasma 01-08-2017 GLU:131, BUN:17, CR:0.76, NA:141, K:4.1, CL 105, CO2:25,AST:17, ALT:27 02/16/15 : TC 154. TG 223. LDL 70. HDL 39. AST 19. ALT 28 . 12/04/20 EKG: [facility] 06-24-2018 EKG 06/24/18 : Abnormality of unclear origin Inverted T wave in I EKG 12/24/17: normal sinus rhythm within normal limits EK12/23/16 Sinus Rhythm. Right axis -consider right ventricular hypertrophy. Abnormal electrocardiogram 06-23-2017 EK06/23/17 Sinus rhythm. Right axis -consider right ventricular hypertrophy. Left atrial enlargement. Abnormal 12/14/15 EKG: Sinus Rhythm Right axis consider right ventricular hypertrophy. Rightward P/QRS axis and rotation-possible pulmonary disease 12/26/20 ECHO: Study quality: Technically difficult. LV chamber size is normal. LV wall thickness is mildly increased. There is normal global systolic function and contractility. The estimated left ventricle ejection fraction is 55-60% (normal). Normal left atrial pressure with grade I diastolic dysfunction. Left atrium chamber is mildly dilated. There is mild thickening of the mitral valve anterior leaflet. There is trace mitral regurgitation. There is mild tricuspid regurgitation. There is mild pulmonary hypertension. Estimated RVSP systolic pressure is 38 mmHg. 01/27/19 ECHO: LV chamber is mildly dilated. LV wall thickness is mild to moderately increased. There is normal systolic function and contractility. The estimated left ventricle ejection fraction is 55-60%(normal). Normal left atrial pressure and grade I diastolic dysfunction. Left atrium chamber is mildly dilated. The aortic valve is mildly calcified. There is mild thickening of mitral valve anterior leaflet. There is mild tricuspid regurgitation. 01/20/19 / specimen report/ HDL 46, LDL 103H, TR 131 , GL 198H , NA 140, K 4.0, CH 102, CO2 28 ,C 9.4 12/13/20 TDM Positive stress test for ischemia. Mildly reversible defect consistent with ischemia in lizzie septal area. Normal LV systolic function. Abnormal stress test. Artifact noted. Compared to last study in 01/13/18, lizzie-septal area ischemia is new. Exercise tolerance : Poor Hypertensive response with exercise. LVEF 57% Treadmill Nuclear Stress Test 01/13/18 : Negative stress test. Normal LV systolic function. Compared to last study in 2015 there are no changes. Average exercise tolerance. LVEF 60%. US, Doppler, Arterial 07/17/17: Abnormal ankle-brachial index, calcified non-compressibile lower extremity arteries. TREADMILL NUCLEAR STRESS TEST 01/03/16: Negative stress test for ischemia. Normal LV systolic function. 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 LVEF 59%. US, doppler, arterial 07-01-2017 US, Doppler, Arterial 07/17/17: Abnormal ankle-brachial index, calcified non-compressibile lower extremity arteries. US, Doppler, Arterial 07/17/17: Abnormal ankle-brachial index, calcified non-compressibile lower extremity arteries. Shabbir Mckeon MD [address] [facility], [place], [address], [place] [facility] 06/29/2024 11:09:11 12/14/2024 text/html 12/14/24CC : Car diac follow up, dyspnea on [id number]-brn white man with a PMH of coronary artery disease s/p stent placement x2 (10/15/12), stent OM (2020), PVD, hyperlipidemia, diabetes mellitus, former tobacco dependence, JOHN, and obesity presents is today for 6 month follow-up. He was last seen in the clinic on 06/29/24, since then he is moving to [facility] had a negative LexiDenies chest pain.Denies shortness of breath at rest. Has mild dyspnea on exertion.No orthopnea. No PNDs.Denies heart palpitations.Denies dizziness. Denies syncope or near syncope.No ankle or leg edema.No major bleeding events.No reported side effects from medications. Taking medications as prescribed with no missed doses.Denies snoring, daytime somnolence and AM headache.*Last LDL was 91 done on 11/05/23.Pt takes atorvastatin 80 mg. Previously:*Had ECHO on 06/27/23 showed LV chamber size is normal. LV wall thickness is mildly increased. The estimated left ventricle ejection fraction is 50-55% (normal). LV relaxation is impaired. Left Atrium chamber is mildly dilated. The aortic valve is mildly calcified. There is mild aortic root calcification. There is mild thickening of the mitral valve anterior leaflet. There is trivial pulmonic regurgitation. * TDM 12/13/20 :Positive stress test for ischemia. Mildly reversible defect consistent with ischemia in lizzie septal area. Normal LV systolic function. Abnormal stress test. Artifact noted. Compared to last study in 01/13/18, lizzie-septal area ischemia is new. Exercise tolerance : Poor Hypertensive response with exercise. LVEF 57% *Had negative stress test done in 01/03/18 with normal LV systolic function, EF 60%. *Had abnormal HILDA 07/17/17 showing calcified non-compressible lower extremity arteries.Results from this visit, or from the past:01/20/19: Na 140 ,K 4.0 , CL 102 ,CO2 28 , GLU 198 , BUN 16, CR 0.82, 01/20/19: TC 172 ,TG 131 ,HDL 46 ,LDL 103, lipid panel, blood 05-01-2017 04/01/17 : SOD 141,K 4.4,CL 104,CO2 26,GLU 158,BUN 19,CR 0.79,AST 18,ALT 32,TG 288,TC 151,HDL 44,LDL 69, TSH 1.18. 04/01/17 : SOD 141,K 4.4,CL 104,CO2 26,GLU 158,BUN 19,CR 0.79,AST 18,ALT 32,TG 288,TC 151,HDL 44,LDL 69, TSH 1.18. CMP, serum or plasma 01-08-2017 GLU:131, BUN:17, CR:0.76, NA:141, K:4.1, CL 105, CO2:25,AST:17, ALT:27 02/16/15 : TC 154. TG 223. LDL 70. HDL 39. AST 19. ALT 28 . 12/04/20 EKG: sinus rhythm EKg normal sinus rhythm WNL rm 07/12/19 electrocardiogram 06-24-2018 EKG 06/24/18 : Abnormality of unclear origin Inverted T wave in I EKG 12/24/17: normal sinus rhythm within normal limits EK12/23/16 Sinus Rhythm. Right axis -consider right ventricular hypertrophy. Abnormal electrocardiogram 06-23-2017 EK06/23/17 Sinus rhythm. Right axis -consider right ventricular hypertrophy. Left atrial enlargement. Abnormal 12/14/15 EKG: Sinus Rhythm Right axis consider right ventricular hypertrophy. Rightward P/QRS axis and rotation-possible pulmonary disease 12/26/20 ECHO: Study quality: Technically difficult. LV chamber size is normal. LV wall thickness is mildly increased. There is normal global systolic function and contractility. The estimated left ventricle ejection fraction is 55-60% (normal). Normal left atrial pressure with grade I diastolic dysfunction. Left atrium chamber is mildly dilated. There is mild thickening of the mitral valve anterior leaflet. There is trace mitral regurgitation. There is mild tricuspid regurgitation. There is mild pulmonary hypertension. Estimated RVSP systolic pressure is 38 mmHg. 01/27/19 ECHO: LV chamber is mildly dilated. LV wall thickness is mild to moderately increased. There is normal systolic function and contractility. The estimated left ventricle ejection fraction is 55-60%(normal). Normal left atrial pressure and grade I diastolic dysfunction. Left atrium chamber is mildly dilated. The aortic valve is mildly calcified. There is mild thickening of mitral valve anterior leaflet. There is mild tricuspid regurgitation. 01/20/19 / specimen report/ HDL 46, LDL 103H, TR 131 , GL 198H , NA 140, K 4.0, CH 102, CO2 28 ,C 9.4 12/13/20 TDM Positive stress test for ischemia. Mildly reversible defect consistent with ischemia in lizzie septal area. Normal LV systolic function. Abnormal stress test. Artifact noted. Compared to last study in 01/13/18, lizzie-septal area ischemia is new. Exercise tolerance : Poor Hypertensive response with exercise. LVEF 57% Treadmill Nuclear Stress Test 01/13/18 : Negative stress test. Normal LV systolic function. Compared to last study in 2015 there are no changes. Average exercise tolerance. LVEF 60%. US, Doppler, Arterial 07/17/17: Abnormal ankle-brachial index, calcified non-compressibile lower extremity arteries. TREADMILL NUCLEAR STRESS TEST 01/03/16: Negative stress test for ischemia. Normal LV systolic function. 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 LVEF 59%. US, doppler, arterial 07-01-2017 US, Doppler, Arterial 07/17/17: Abnormal ankle-brachial index, calcified non-compressibile lower extremity arteries. US, Doppler, Arterial 07/17/17: Abnormal ankle-brachial index, calcified non-compressibile lower extremity arteries. Shabbir Mckeon MD [address] [place], [address], [place] [facility] 12/14/2024 13:16:04
--- OUTSIDE RECORDS SUMMARY | 2024-12-15 11:47 | XMS_ITS | Clinical Summary ---
Author Organization [facility] Address [address] [place] [id number] Care Team Providers Care Hand Bookbinder Name Role Phone Carlos Ortiz MD Primary Care Prov ider Allergies Active Allergy Reactions Criticality Noted Date Comments Sulfa (Sulfonamide Antibiotics) Unknown 10/10/2012 NOT RECALLED/OCCURED A CHILD. Medications aspirin 325 mg tabletIndication s:heart health Take 1 tablet (325 mg total) by mouth convenience store manager before breakfast Active atorvastatin (LIPITOR) 80 mg tablet Take 1 tablet (80 mg total) by mouth convenience store manager before breakfast Active dapagliflozin (Farxiga) 10 mg tabletIndication s:type 2 diabetes mellitus Take 1 tablet (10 mg total) by mouth every morning Active esomeprazole DR (NexIUM) 40 mg capsuleIndicatio ns:Treatment of Non-Bleeding Gastric Disorder Take 1 capsule (40 mg total) by mouth daily before breakfast Active furosemide (LASIX) 40 mg tabletIndication s:Edema Take 1 tablet (40 mg total) by mouth as needed Active gabapentin (NEURONTIN) 300 mg capsuleIndicatio ns:Neuropathic Pain Take 1 capsule (300 mg total) by mouth 3 (three) times a day 3 Active glimepiride (AMARYL) 4 mg tabletIndication s:type 2 diabetes mellitus Take 0.5 tablets (2 mg total) by mouth 2 (two) times a day Active HYDROcodone-acet aminophen (NORCO) 5-325 mg per tablet Take 1 tablet by mouth as needed for pain 0 Active losartan (COZAAR) 100 mg tabletIndication s:hypertension Take 0.5 tablets (50 mg total) by mouth convenience store manager before breakfast Active metFORMIN (GLUCOPHAGE) 500 mg tabletIndication s:type 2 diabetes mellitus Take 1 tablet (500 mg total) by mouth 2 (two) times a day with meals Active nywxjddo-ppt-DC- lycopen-lutein (Centrum Silver) 0.4 mg-300 mcg- 250 mcg tabletIndication s:Vitamin Deficiency Prevention Take 1 tablet by mouth daily before breakfast Active nitroglycerin (NITROSTAT) 0.[address] 1 tablet (0.4 mg total) under the tongue every 5 (five) minutes as needed for chest pain Active pioglitazone (ACTOS) 30 mg tabletIndication s:type 2 diabetes mellitus Take 1 tablet (30 mg total) by mouth every morning Active potassium chloride ER 10 mEq CR tabletIndication s:hypokalemia prevention Take 1 tablet/capsule (10 mEq total) by mouth every morning Active propranolol LA (INDERAL LA) 80 mg 24 hr capsuleIndicatio ns:hypertension Take 1 capsule (80 mg total) by mouth convenience store manager before breakfast 3 Active sildenafiL (VIAGRA) 100 mg tablet Take 1 tablet (100 mg total) by mouth as needed for erectile dysfunction Active tamsulosin (FLOMAX) 0.4 mg extended release capsuleIndicatio ns:benign prostatic hyperplasia with lower urinary tract sx Take 1 capsule (0.4 mg total) by mouth 2 (two) times a day Active phenazopyridine (PYRIDIUM) 100 mg tablet Take 1 tablet (100 mg total) by mouth 3 (three) times a day as needed for urinary pain 10 tablet 3 Active finasteride (PROSCAR) 5 mg tabletIndication s:benign prostatic hyperplasia with lower urinary tract sx Take 1 tablet (5 mg total) by mouth daily 90 tablet 3 4 04/09/20 25 Active oxyBUTYnin XL (DITROPAN-XL) 10 mg 24 hr tablet TAKE 1 TABLET BY MOUTH EVERY DAY 90 tablet 3 4 Active Active Problems Problem Noted Date Diagnosed Date Urinary frequency 05/15/2023 Nephrolithiasis 01/30/2023 Surgical History Surgery Date Site/Laterality Comments KNEE ARTHROSCOPY Right ROTATOR CUFF REPAIR Bilateral CARPAL TUNNEL RELEASE Bilateral ACHILLES TENDON REPAIR Right SPINE SURGERY CORONARY STENT PLACEMENT x2 FOOT SURGERY Right crushing injury WRIST SURGERY Right tendon surgery KIDNEY STONE SURGERY Medical History Medical History Date Comments Refusal of blood transfusions as patient is [employer] Diabetes mellitus (HCC) HTN (hypertension) HLD (hyperlipidemia) Family History Medical History Relation Name Comments Anesthesia problems Neg Hx Social History Tobacco Use Types Packs/Day Years Used Date Smoking Tobacco: Former Cigarettes Q uit: 2006 Smokeless Tobacco: Never Tobacco Cessation:Counseling Given: Not Answered AUDIT-C Answer Date Recorded Q1: How often do you have a drink containing alc ohol? Monthly or less 02/20/2023 Q2: How many drinks containi ng alcohol do you have on a typical day when you are drinking? 1 or 2 02/20/2023 Q3: How often do you have si x or more drinks on one occasion? Never 02/20/2023 Personal Safety Answer Date Recorded Have you ever been in or are you currently in a harmful physical or emotional relationship or is someone making you feel afraid or unsafe? 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 Gender Identity Not on file Sexual Orientation Not on file Obstetrics History Last Filed Vital Signs Vital Sign Reading Time Taken Comments Blood Pressure 162/78 02/20/2023 2:25 PM CDT Pulse 78 02/20/2023 2:25 PM CDT Temperature 36.1 C (97 F) 02/20/2023 1:30 PM CDT Respiratory Rate 14 02/20/2023 2:25 PM CDT Oxygen Saturation 92% 02/20/2023 2:25 PM CDT Inhaled Oxygen Concentration - - Weight 113.4 kg (250 lb) 01/31/2023 4:40 PM CDT Height 175.3 cm (5' 9 ) 01/31/2023 4:40 PM CDT Body Mass Index 36.92 01/31/2023 4:40 PM CDT Plan of Treatment Health Maintenance Due Date Last Done Comments Colon Cancer Screening-Colonoscopy 1955 Depression Screening 1955 Hepatitis C Screening 1955 DTaP/Tdap/Td Vaccine (1 - Tdap) 1964 Hepatitis B Screening 1971 Pneumococcal vaccine 65+ (1 of 1 - PCV) 2003 Zoster Vaccine (1 of 2) 2003 Abdominal Aortic Aneurysm (AAA) Screen 2018 Well Visit 65+ 2018 Fall Risk Assessment 02/21/2024 02/20/2023 Influenza Vaccine (#1) 2024 Medical Devices Implanted Type Area Stave Mill Hand Device Identifier Shelf Expiration Date Model / Serial / Lot ILD [employer] Stent Ureteral Set Double Pigtail Radiopaque Tip [employer] [id number] Polyurethane Hydrophilic Coated [id number] - [id number] - [id number] Implanted:Qty: 1 on 02/20/2023 by Richard Camargo MD at [facility] Stent Left: Ureter [employer] 11/19/2025 [id number] / [id number] T1 / [id number] Stent Heart Description:x2 Insurance [facility] MEDICARE [employer] MEDICARE Care Teams Hand Bookbinder Relationship Specialty Start Date End Date Carlos Ortiz MD [address] [place] [address] PCP - General Family Medicine 01/21/23
--- OUTSIDE RECORDS SUMMARY | 2024-12-15 11:47 | XMS_ITS | Referral Summary ---
Author Organization [facility] Address [address] [place] [address] Care Team Providers Care Leather Scrubber Name Role Phone Carlos Ortiz MD Primary Care Prov ider Allergies Active Allergy Reactions Criticality Noted Date Comments Sulfa (Sulfonamide Antibiotics) Unknown 10/10/2012 NOT RECALLED/OCCURED A CHILD. Medications aspirin 325 mg tabletIndication s:heart health Take 1 tablet (325 mg total) by mouth glazier stained glass before breakfast Active atorvastatin (LIPITOR) 80 mg tablet Take 1 tablet (80 mg total) by mouth glazier stained glass before breakfast Active dapagliflozin (Farxiga) 10 mg [...] 0.5 tablets (50 mg total) by mouth glazier stained glass before breakfast Active metFORMIN (GLUCOPHAGE) 500 mg tabletIndication s:type 2 diabetes mellitus Take 1 tablet (500 mg total) by mouth 2 (two) times a day with meals Active kcqrpoqv-geb-FS- lycopen-lutein (Centrum Silver) 0.4 mg-300 mcg- 250 [...] 1 capsule (80 mg total) by mouth glazier stained glass before breakfast 3 Active sildenafiL (VIAGRA) 100 [...] Diagnosed Date Urinary frequency 05/15/2023 Nephrolithiasis 01/30/2023 Social History Tobacco Use Types Packs/Day Years [...] on file 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 Gender Identity Not on file Sexual Orientation Not on file Last Filed Vital Signs Vital Sign Reading [...] 01/31/2023 4:40 PM CDT Plan of Treatment Not on file Medical Devices Implanted Type Area Land Use Planner Device Identifier Shelf Expiration Date Model / Serial / Lot [employer] Stent Ureteral Set Double Pigtail Radiopaque Tip Universa [id number] Polyurethane Hydrophilic Coated [id number] - [id number] - [id number] Implanted:Qty: 1 on 02/20/2023 by Richard Camargo MD at [facility] Stent Left: Ureter [employer] Inc 11/19/2025 [id number] / [id number] [id number] / [id number] Stent Heart Description:x2 Insurance AETNA MEDICARE AETNA MEDICARE Care Teams Leather Scrubber Relationship Specialty Start Date End Date Carlos Ortiz MD [address] [place] [address] PCP - General Family Medicine 01/21/23
--- OUTSIDE RECORDS SUMMARY | 2024-12-15 11:47 | XMS_ITS | Clinical Summary ---
Author Organization [facility] Address [address] [place] [address] Care Team Providers Care Ocean Biologist Name Role Phone Unavailable Primary Care Provider Unavailabl e Social History Tobacco Use Types Packs/Day Years Used Date Smoking Tobacco: Never Assessed Sex and Gender Information Value Date Recorded Sex Assigned at Not on file Legal Sex Male 8:20 PM CDT Gender Identity Not on file Sexual Orientation Not on file Plan of Treatment Health Maintenance Due Date Last Done Comments Colorectal Cancer Screening Colonoscopy (10 Years) 1953 Hepatitis C 1971 DTaP, Tdap and Td Vaccines ( 1 - Tdap) 1972 Zoster Vaccines (1 of 2) 2003 Pneumococcal Vaccine: 50+ Ye ars (1 of 1 - PCV) 2018 COVID-19 Vaccine ( - 2023-2 5 season) 2024 RSV Immunization or 60+ Years (1 - 1-dose 75+ series) 2028 Meningococcal B Vaccine Aged Out No l onger eligible based on patient's age to complete this topic Meningococcal Vaccine Aged Out No jackie estefani eligible based on patient's age to complete this topic RSV Immunizations Under 20 Months Aged Out No longer eligible based on patient's age to complete this topic
[2024-12-15 12:21] LABS: Add Urine Microscopic? NO; Appearance Urine Clear (Clear); Bilirubin Urine Negative (Negative); Blood Urine Negative (Negative); Color Urine Yellow (Yellow); Glucose Urine UA 3+ mg/dL (Negative); Ketones Urine Negative (Negative); Leukocyte Esterase Ur Negative LEU/UL (Negative); Nitrate Urine Negative (Negative); Protein Urine Negative (Negative); Specific Grav Ur 1.038 (1.001-1.035); Urobilinogen Urine 0.2 mg/dL (<2.0); pH Urine 5.5 (5.0-9.0)
--- NOTE | 2024-12-15 12:42 | ED_ITS ---
HPI - Back Pain/Injury General Chief Complaint: Urogenital-Male Stated Complaint: left lower back pain Time Seen by Provider: 12/15/24 12:25 History of Present Illness HPI Narrative: Patient here with L back pain x2 mo; worse with movements; comes/goes. no recent injury; no new numbness/weakness/radiation. H/o back surgeries, kidney stones. No n/v. Related Data Home Medications ?Medication ?Instructions ?Recorded ?Confirmed ?Last Taken ?Type aspirin 325 mg tablet 325 mg PO DAILY 02/11/20 07/05/24 Unknown History calcium polycarbophil 625 mg 1,250 mg PO DAILY 02/11/20 07/05/24 Unknown History tablet (Fiber-Tabs) losartan 100 mg tablet 100 mg PO DAILY 02/11/20 07/05/24 Unknown History multivitamin-ferrous 1 tablet PO DAILY 02/11/20 07/05/24 Unknown History fumarate-folic acid 18 mg-400 mcg tablet (Centrum) furosemide 40 mg tablet 40 mg PO DAILY 02/28/22 07/05/24 Unknown History potassium chloride 10 mEq 10 meq PO DAILY 02/28/22 07/05/24 Unknown History tablet,extended release finasteride 5 mg tablet 5 mg PO DAILY 07/05/24 07/05/24 Unknown History Allergies Allergy/AdvReac Type Severity Reaction Status Date / Time Sulfa (Sulfonamide Allergy Severe ???REACTION Verified 12/15/24 10:36 Antibiotics) Review of Systems Review of Systems: All systems reviewed & are unremarkable except as noted in HPI and below PMFSH Past Medical History Medical History Bilateral kidney stones (2019) Diabetes HTN (hypertension) Hyperlipidemia Obesity JOHN on CPAP Surgical History Surgical History History of coronary artery stent placement (11/2020) November 2020 History of shoulder surgery right rotator cuff History of surgery on right wrist tendon release History of total knee arthroplasty Family History Family History Father Heart disease Diabetes mellitus Mother Breast cancer Sibling Brain tumor Social History Social History Smoking status: Former smoker Second hand tobacco smoke exposure: No Alcohol intake: never Substance use: never Substance use type: does not use Do You Feel Safe in your Home?: Yes Lack of Transportation: YES Lack of Food: Never True Current Housing: I Have Housing Concerned About Future Housing: No Difficulty Paying Gas/Electric Bills: No Difficulty Paying for Meds: No Currently Unemployed: No Education: High School Diploma/GED Difficulty w/ Childcare or Family Care: No Living arrangements: with family Occupation/Education: retired Gender identity (if verbalized by the patient): Male Sexual Orientation (if Verbalized by the Patient): Straight or Heterosexual Spiritual care concerns: No Agree to blood products: Yes Exam Narrative: EXAMINATION OF ORGAN SYSTEMS/BODY AREAS: Constitutional: Vital signs per nursing GENERAL:[No acute distress, non-toxic appearing.] HEAD: Normal with no signs of head trauma. EYES: EOMI, conjunctiva normal ENT: Hearing grossly intact LUNGS: Nonlabored breathing. HEART: [Regular rate and rhythm] ABD: [Soft], [nontender to palpation] EXT: Normal range of motion, no significant tenderness to back SKIN: [No rashes or lesions.] NEURO: [Alert and oriented x 3. No gross focal sensory or strength deficits.] Ambulating with normal steady gait PSYCH: Normal affect Course Vital Signs Vital signs: Vital Signs Temperature 97.9 F 12/15/24 10:36 Pulse Rate 95 12/15/24 10:36 Respiratory Rate 20 12/15/24 10:36 Blood Pressure 132/96 H 12/15/24 10:36 Pulse Oximetry 96 12/15/24 10:36 Temperature 97.9 F 12/15/24 10:36 Pulse Rate 90 12/15/24 13:41 Respiratory Rate 20 12/15/24 13:41 Blood Pressure 131/69 12/15/24 13:41 Pulse Oximetry 98 12/15/24 13:41 MDM - Back Pain/Injury MDM Narrative Medical decision making narrative: ED COURSE AND MEDICAL DECISION MAKIN-year-old male with chronic back pain. Normal motor and sensory exam. Patient able to ambulate and in no acute distress. No evidence of acute cord compression, osteomyelitis/discitis or cauda equina without saddle anesthesia, urinary retention/incontinence, numbness/tingling in lower extremities, fever, history of IV drug use, cancer or immunosuppression. Doubt AAA or aortic dissection without severe pain/discomfort or any neurovascular deficits. Patient would like CT scan this is obtained and is essentially normal other than his chronic spine disease. Discuss the patient, offered trial of NSAIDs and steroids with follow-up to PCP. Patient is given return precautions and instructed to come back at any point in time for worsening pain, fevers, weakness, difficulty walking, urinary or fecal incontinence. Patient expressed understanding of instructions. Lab Data Labs: Lab Results 12/15/24 Range/Units 12:14 Urine Color Yellow (Yellow) Urine Appearance Clear (Clear) Urine pH 5.5 (5.0-9.0) Ur Specific [place] 1.038 H (1.001-1.035) Urine Protein Negative (Negative) mg/dL Urine Glucose (UA) 3+ H (Negative) mg/dL Urine Ketones Negative (Negative) mg/dL Ur Blood (Man) Negative (Negative) Urine Nitrate Negative (Negative) Urine Bilirubin Negative (Negative) Urine Urobilinogen 0.2 (<2.0) mg/dL Leukocyte Esterase Rfl Negative (Negative) ACOSTA/UL Discharge Plan Discharge Clinical Impression: Low back pain Patient Disposition: Home Condition: Stable Instructions: Chronic Back Pain (DC) Additional Instructions: Please follow up with your doctor; you can always return for any further issues. Patient Language: Nepali Prescriptions: New prednisone 20 mg tablet 40 mg PO DAILY 5 Days Qty: 10 0RF methocarbamol 750 mg tablet 750 mg PO TID PRN (Reason: muscle spasm) Qty: 30 0RF No Action furosemide 40 mg tablet 40 mg PO DAILY potassium chloride 10 mEq tablet extended release 10 meq PO DAILY finasteride 5 mg tablet 5 mg PO DAILY aspirin 325 mg Tablet 325 mg PO DAILY calcium polycarbophil [Fiber-Tabs] 625 mg Tablet 1,250 mg PO DAILY losartan 100 mg Tablet 100 mg PO DAILY Centrum 18-400 mg-mcg Tablet 1 tablet PO DAILY esomeprazole magnesium 40 mg capsule,delayed release(DR/EC) 40 mg PO DAILY Qty: 90 3RF glimepiride 4 mg tablet 4 mg PO DAILY Qty: 90 3RF dapagliflozin propanediol [Farxiga] 10 mg tablet 10 mg PO DAILY Qty: 90 3RF tamsulosin 0.4 mg capsule See Rx Instructions .ROUTE .COMPLEX Qty: 180 2RF Dose Instruction: TAKE 1 CAPSULE BY MOUTH TWICE A DAY Rx Instructions: TAKE 1 CAPSULE BY MOUTH TWICE A DAY Ozempic 0.25 mg or 0.5 mg (2 mg/3 mL) pen injector See Rx Instructions .ROUTE .COMPLEX Qty: 3 2RF Dose Instruction: 0.5 MG (0.736 ML) SUBCUTANEOUSLY WEEKLY FOR 4 WEEKS Rx Instructions: 0.5 MG (0.736 ML) SUBCUTANEOUSLY WEEKLY FOR 4 WEEKS metformin 500 mg tablet 1,000 mg PO BID Qty: 360 2RF pioglitazone 30 mg tablet 30 mg PO DAILY Qty: 90 2RF propranolol 80 mg capsule,extended release 24 hr 80 mg PO DAILY Qty: 90 2RF Follow-up/Referrals: Carlos Ortiz MD [Primary Care Provider] - 2 Days
--- OUTSIDE RECORDS SUMMARY | 2024-12-15 13:32 | XMS_ITS | Continuity of Care Document ---
Author Organization [facility] Address [address] [place] [address] Care Team Providers Care Wardrobe Specialist Name Role Phone REESE SAHU Primary Care Provider Assessment No assessment recorded. Plan of Treatment Reminders Order Date Submit Date Provider Last Modified By Organization Details Last Modified Time Details Appointments None record ed. Lab None record ed. Referral None record ed. Procedures None record ed. Surgeries None record ed. Imaging None record ed. Medication Orders None record ed. Patient TargetsNo targets recorded. Patient Instructions Encounter Date Encounter Id Patient Instructions Last Modified By Organization Details Last Modified Time 12/14/2024 [id number] Weight loss 20 pounds Exercise advised Low cholesterol diet advised Low sodium diet advised. [email or web address] Not available 12/14/2024 13:15:47 Reason for Referral None Reported. Problems Name Problem SNOMED Code Status Onset Date Resolution Date Notes Provider Name and Address Organization Details Recorded Time Coronary atheroscler osis 532730961 Active 2022 Elizabeth mueller [facility] 3 20:14:37 Hyperlipide bob 28515768 Active 2015: LDL 69 Elizabeth mueller [facility] 3 20:14:16 History of hypertensio n 903308648 Completed 201512/13/2015 Michelle mueller [facility] 6 01:24:10 Diabetes mellitus 85738116 Active 2015 Type 2 Elizabeth mueller [facility] 3 20:14:11 Obstructive sleep apnea syndrome 65454923 Active 2015 Elizabeth mueller [place] - [facility] 3 20:14:21 Gastroesoph ageal reflux disease 527865838 [place] [facility] 6 09:03:31 Obesity 452813152 [place] 2015 [place] [facility] 6 09:03:49 Multi vessel coronary artery disease 578966629 Completed 201601/06/2019 s/p CABG [place] [facility] 9 16:38:56 Benign hypertensio n 58766129 Active 2015 Johnson Meskaryna [facility] 3 20:14:05 Peripheral arterial occlusive disease 418601236 Active 2017 Johnson Meskaryna [facility] 8 12:12:06 Coronary arterioscle rosis 93364810 Active 2018 Elizabeth Tena [facility] 3 20:14:08 Edema of lower extremity 518206606 Active 2018 Tricia Ho [facility] 9 16:40:52 Dyspnea on exertion 21658167 Active 2018 Tricia Ho [facility] 9 16:42:33 Problem Notes None recorded. Procedures Surgical History Date Name Laterality Status Provider Name and Address Organization Details Recorded Time Back Surgery completed [facility] 12/13/2015 11:44:17 Anesth surgery of shoulder completed [facility] 12/13/2015 11:44:40 Carpal tunnel surgery completed [facility] 12/13/2015 11:44:53 Anesth kidney stone destruct completed [facility] 12/13/2015 11:45:12 Anesth knee area surgery completed [facility] 12/13/2015 11:45:27 Imaging Results None recorded. Procedure Notes None recorded. Medical Equipment None Reported. Allergies Allergen ID Allergen Name Allergen Category Reaction Reaction Severity Criticality Documentation Date Start Date Code Code System Note Provider Name and Address Organization Details Recorded Time 444 Demerol medicatio n Not available Not available Not available 12/08/2015 91547 1 RxNorm HCL Michelle Eugene [place], [place] - [facility] 6 08:58:19 Medications Name Sig Start Date [...] Updated DateTime 5 175.26 cm 36 kg/m2 852888. 54 g 100 /min 16 /min 93 % 93 % 134 mm[Hg] 86 mm[Hg] Rolanda Coronado [facility] 5 13:03:29 Social History Question Answer Notes LastModified by Organizat ion Details LastModified Time Tobacco Smoking Status Former Smoker [facility]02[facility] 12/13/2015 11:49:20 What Is Your Level Of Alcohol Consumption? Occasional Information not available 12/13/2015 Do You Or Have You Ever Used E-cigarettes Or Vape? Never Used Electronic Cigarettes Information not available 12/01/2020 Live Alone Or With Others? With Others Information not available 12/14/2015 What Was The Date Of Your Most Recent Tobacco Screening? 01/06/2019 Information not available 03/25/2019 Do You Or Have You Ever Used Smokeless Tobacco? Former Smokeless Tobacco User Information not available 12/01/2020 General Stress Level Low [email or web address] Information not available 12/14/2015 Sex: Unknown Functional [...] Response Diabetes Y Coronary Artery Disease Y Sleep Apnea Y GERD/Reflux Y Hypertension Y Past Encounters Encounter ID Performer Location Encounter Start Date Encounter Closed Date Diagnosis/Indication Diagnosis SNOMED-CT Code Diagnosis ICD10 Code Diagnosis Note [id number] Shabbir Mckeon MD [place] [facility] [place] [address] 12/14/2024 12:26:02 12/14/2024 13:16:54 Congestive heart failure 60041884 I50.9 Resolved There is normal global systolic functionan d contractil ity. The estimated left ventricle ejection fraction is 55-60% (normal). Benign hypertension 1072 5009 I10 Well controlled on current regimen Coronary arteriosclerosis 38160124 I25.10 S/p 3 stenthe is on asprin 325 stress test was negative Hyperlipidemia 24671682 E78.5 Needs to keep LDL less than 70, and HDL more than 40last LDL was 91 mg and he is taking lipitor 80will change to Crestor 20 Obstructiv e sleep apnea syndrome 10056652 G47.33 Compliant with nightly CPAP use Edema of l ower extremity 826122245 R60.0 Stable with Lasix Leg elevation and low salt diet advised Health Concerns Section Related Observation LastModified by Organization Detai ls LastModified Time None Recorded Concern Status LastModified by Organization Details LastModified Time None Recorded Payers Encounter Date Sequence Insurance Name Policy Number Policy Phillips Covered Member ID Phillips Member ID Guarantor Name 12/14/2024 1 A[employer] (MEDICARE REPLACEMENT PPO) [id number] Anibal Granda [id number] Anibal Granda Notes Date Note Type Note Provider Name and Address Organization Details Recorded Time 12/14/2024 text/html 12/14/24CC : Car diac follow up, dyspnea on sgfutaiz53-kvvd-mil white man with a PMH of coronary artery disease s/p stent placement x2 (10/15/12), stent OM (2020), PVD, hyperlipidemia, diabetes mellitus, former tobacco dependence, JOHN, and obesity presents is today for 6 month follow-up. He was last seen in the clinic on 06/29/24, since then he is moving to [facility] had a negative LexiDenies chest pain.Denies shortness [...] non-compressibile lower extremity arteries. Shabbir Mckeon MD [address] [place], [address], [place] - [facility] 12/14/2024 13:16:04
--- OUTSIDE RECORDS SUMMARY | 2024-12-15 13:32 | XMS_ITS | Clinical Summary ---
Author Organization [facility] Address [address] [place] [address] Care Team Providers Care Computational Sciences Professor Name Role Phone Unavailable Primary Care Provider [...]
--- OUTSIDE RECORDS SUMMARY | 2024-12-15 13:32 | XMS_ITS | Clinical Summary ---
Author Organization [facility] Address [address] [place] [address] Care Team Providers Care Apparel Designer Name Role Phone Carlos Ortiz MD Primary Care Prov ider Allergies Active Allergy Reactions Criticality Noted Date Comments Sulfa (Sulfonamide Antibiotics) Unknown 10/10/2012 NOT RECALLED/OCCURED A CHILD. Medications aspirin 325 mg tabletIndication s:heart health Take 1 tablet (325 mg total) by mouth liquid sugar melter before breakfast Active atorvastatin (LIPITOR) 80 mg tablet Take 1 tablet (80 mg total) by mouth liquid sugar melter before breakfast Active dapagliflozin (Farxiga) 10 mg [...] 0.5 tablets (50 mg total) by mouth liquid sugar melter before breakfast Active metFORMIN (GLUCOPHAGE) 500 mg tabletIndication s:type 2 diabetes mellitus Take 1 tablet (500 mg total) by mouth 2 (two) times a day with meals Active rejcseem-njo-DF- lycopen-lutein (Centrum Silver) 0.4 mg-300 mcg- 250 [...] 1 capsule (80 mg total) by mouth liquid sugar melter before breakfast 3 Active sildenafiL (VIAGRA) 100 [...] on file 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 Gender Identity Not on file Sexual Orientation [...] (#1) 2024 Medical Devices Implanted Type Area E Commerce Strategist Device Identifier Shelf Expiration Date Model / Serial / Lot Group [employer] Stent Ureteral Set Double Pigtail Radiopaque Tip Universa 2amn96yd Polyurethane Hydrophilic Coated [id number] - [id number] - [id number] Implanted:Qty: 1 on 02/20/2023 by Richard Camargo MD at [facility] Stent Left: Ureter [employer] 11/19/2025 [id number] / [id number] T1 / [id number] Stent Heart Description:x2 Insurance [facility] AETNA MEDICARE Care Teams Apparel Designer Relationship Specialty Start Date End Date Carlos Ortiz MD [address] [place] [address] PCP - General Family Medicine 01/21/23
--- OUTSIDE RECORDS SUMMARY | 2024-12-15 13:32 | XMS_ITS | Continuity of Care Document ---
Author Organization [facility] Address [address] [place] [address] Phone Care Team Providers Care Tennis Player Name Role Phone Calvin Lora MD Unavailable Unavailable Advance Directives Directive Yes / No Effective Date File Name No Information Encounters Encounter Description Practice Location Reason(s) For Visit Diagnoses Date Provider Providers Copied on Encounter [facility], [address], [place], [place], [address], tel:[phone] [facility] No Information Geno Simpson. [address] , [place], [place], [id number]. tel:[phone] Referring Provider: [address], [place], [address]. tel:[phone] Family History Family Member Type Diagnosis Age At Onset No Information Payers Payer name Insurance type Covered alliance party ID Authoriza tion(s) BCBS INACTIVE OUT OF STATE [id number] 1 Social History Type Description Quantity Date [...]
--- OUTSIDE RECORDS SUMMARY | 2024-12-15 13:32 | XMS_ITS | CONTINUITY OF CARE DOCUMENT ---
Author Name jorge patel Address Unknown Organization [facility] Address [address] [place] [address] [address] [place] [address] Phone [phone] Care Team Providers Care Supervising Fire Marshal Name Role Phone REESE SAHU MD Unavailable INSURANCE PROVIDERS Payer name Policy type / Coverage type Lauri red democrat ID [facility] [id number]
--- OUTSIDE RECORDS SUMMARY | 2024-12-15 13:32 | XMS_ITS | Referral Summary ---
Author Organization [facility] Address [address] [place] [address] Care Team Providers Care Geophysical Computer Name Role Phone Carlos Ortiz MD Primary Care Prov ider Allergies Active Allergy Reactions Criticality Noted Date Comments Sulfa (Sulfonamide Antibiotics) Unknown 10/10/2012 NOT RECALLED/OCCURED A CHILD. Medications aspirin 325 mg tabletIndication s:heart health Take 1 tablet (325 mg total) by mouth engraver seals before breakfast Active atorvastatin (LIPITOR) 80 mg tablet Take 1 tablet (80 mg total) by mouth engraver seals before breakfast Active dapagliflozin (Farxiga) 10 mg [...] 0.5 tablets (50 mg total) by mouth engraver seals before breakfast Active metFORMIN (GLUCOPHAGE) 500 mg tabletIndication s:type 2 diabetes mellitus Take 1 tablet (500 mg total) by mouth 2 (two) times a day with meals Active qltlocpg-nhp-CR- lycopen-lutein (Centrum Silver) 0.4 mg-300 mcg- 250 [...] 1 capsule (80 mg total) by mouth engraver seals before breakfast 3 Active sildenafiL (VIAGRA) 100 [...] on file 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 Gender Identity Not on file Sexual Orientation [...] on file Medical Devices Implanted Type Area Calciner Feeder Device Identifier Shelf Expiration Date Model / Serial / Lot [employer] Stent Ureteral Set Double Pigtail Radiopaque Tip Universa 3wbq93yd Polyurethane Hydrophilic Coated [id number] - [id number] - [id number] Implanted:Qty: 1 on 02/20/2023 by Richard Camargo MD at [facility] Stent Left: Ureter [employer] 11/19/2025 [id number] / [id number] T1 / [id number] Stent Heart Description:x2 Insurance AETNA MEDICARE AETNA MEDICARE Care Teams Geophysical Computer Relationship Specialty Start Date End Date Carlos Ortiz MD [address] [place] [address] PCP - General Family Medicine 01/21/23
--- OUTSIDE RECORDS SUMMARY | 2024-12-15 13:32 | XMS_ITS | Clinical Summary ---
Author Organization [facility] Address [address] [place] [address] Care Team Providers Care Vault Mechanic Name Role Phone Carlos Ortiz MD Primary Care Provider [phone] Allergies No known active allergies Medications atenoloL [...] 2024 Insurance AETNA PPO MCR Care Teams Vault Mechanic Relationship Specialty Start Date End Date Carlos Ortiz MD PCP - General Family Practice 02/16/20
[2024-12-15 13:41] VITALS: BP 131/69; PULSE 90; RESP 20; O2SAT 98
== END 2024-12-15 13:42 | disposition home or self-care (01) ==
PROVIDERS: Emergency Provider Emergency Medicine; PCP Family Medicine Adolescent Medicine
DX: M54.50 Low back pain, unspecified (principal); I10 Essential (primary) hypertension; E11.9 Type 2 diabetes mellitus without complications; E66.9 Obesity, unspecified; Z68.38 Body mass index [BMI] 38.0-38.9, adult; G47.33 Obstructive sleep apnea (adult) (pediatric); Z87.442 Personal history of urinary calculi; Z95.5 Presence of coronary angioplasty implant and graft; Z96.659 Presence of unspecified artificial knee joint; Z87.891 Personal history of nicotine dependence; Z79.82 Long term (current) use of aspirin; Z79.85 Long-term (current) use of injectable non-insulin antidiabetic drugs; Z79.84 Long term (current) use of oral hypoglycemic drugs; Z79.899 Other long term (current) drug therapy
CPT/HCPCS: 74176; 81003; 99284